=== PATIENT | female | born 1965 | race Caucasian/White ===

== ENCOUNTER → 2018-02-24 13:28 | Outpatient (CLI) | payer OTHER, MEDICAID, SELFPAY ==
--- NOTE | 2018-02-24 | DI.MRI.S_ITS ---
PROCEDURE: MR LUMBAR SPINE WO CON INDICATIONS: LUMBAR RADICULOPATHY TECHNIQUE: Noncontrast sagittal T1 spin echo and T2 fast echo, sagittal STIR, axial T1 and T2 fast spin echo through the lumbar spine. In cases with scoliosis, additional coronal T2 fast spin echo may be performed. COMPARISON: [facility], MR, L-SPINE WITHOUT CONTRAST, 05/31/2007, 17:00. [facility], MR, L-SPINE WITHOUT CONTRAST, 07/15/2009, 16:40. [facility], XA, L/S-SPINE 2-3 VIEWS PAIN DEPT, 07/24/2009, 15:34. FINDINGS: Image quality: This examination is limited by involuntary motion artifact. Alignment and Curvature: There is normal bony alignment. Bone Marrow: Marrow is of normal overall signal. No acute vertebral body compression fractures. Scattered foci are seen, which are hyperintense on T1-weighted and T2-weighted imaging, which are most consistent with benign vertebral body hemangiomas. Spinal Cord: Conus medullaris terminates at the T12-L1 level. Visualized cord demonstrates normal signal and size. Paraspinous Soft Tissues: No paravertebral masses. T12-L1: Normal appearance. L1-L2: Normal appearance. L2-L3: Normal appearance. L3-L4: No significant abnormality is seen. L4-L5: Mild loss of disc height is seen. Loss of disc signal is seen. Mild disc bulge is seen, which is eccentric to the right. Moderate facet joint hypertrophy is seen. There is mild right-sided and minimal left-sided neural foraminal narrowing seen. No significant central canal narrowing is seen. These degenerative changes are mildly progressed compared to 2008. L5-S1: Mild loss of disc height is seen. Loss of disc signal is seen. Etnh-ce-xmjauojo disc bulge is seen, which is eccentric to the right. Mild facet joint hypertrophy is seen. There is mild right-sided neural foraminal narrowing. No significant left-sided neural foraminal narrowing is seen. No central canal narrowing. Stable from the prior study. IMPRESSION: Mild lower lumbar spine degenerative changes are seen. Dictated by: Mitch Washington M.D. on 02/24/2018 at 13:15 Approved by: Mitch Washington M.D. on 02/24/2018 at 13:20
== END ==
PROVIDERS: PCP Family Medicine; Visit Provider Family Medicine
DX: M54.16 Radiculopathy, lumbar region (principal); M51.36 Other intervertebral disc degeneration, lumbar region
CPT/HCPCS: 72148

== ENCOUNTER → 2018-04-04 14:54 | Oncology outpatient (ONC) | payer OTHER, MEDICAID, SELFPAY ==
--- NOTE | 2018-04-04 15:02 | ONC.PN ---
Assessment and Plan - Time Spent with Patient IMPRESSION: 1. DVT, right external iliac vein diagnosed May 2017. 2. Bilateral pulmonary emboli, CT June 06, 2017 while on rivaroxaban. 3. Protein C and protein S deficiency. 4. Strong family history of thrombosis. 5. History of GI bleed. I reviewed the findings, questions and plan for treatment with her today. She continues on warfarin at 20 mg daily which is stable and same as previous visit. She notes recent INRs that were below 2 on a couple of occasions though most of the time she is therapeutic she believes. We reviewed her other symptoms and questions. Discussed repeat imaging however her symptoms are transient and not persistent or progressive so she will monitor and call back if this changes or go directly to the ED for further evaluation. She understands the risk of recurrent thromboembolus, particularly given her history with presentation with PE while on treatment. Continue to monitor for signs or symptoms of bleeding and call back as needed if any new concerns arise. I reviewed with her that she should have annual follow-up to review treatment plan and address any new concerns or complications from treatment. She requests six-month follow-up. PLAN: 1. Continue warfarin and follow-up with PCP or protime clinic as discussed. 2. Avoid aspirin or NSAIDs the medication. 3. Monitor for new symptoms and call back as needed 4. Return appointment here in 6 months. 5. CBC, CMP, PT/INR prior to the visit. DICTATED BY SARAY MYERS MD MEDICAL ONCOLOGY AND HEMATOLOGY PN -Subjective Interval history: HEMATOLOGY/ONCOLOGY PROGRESS NOTE DATE OF SERVICE: APRIL 04, 2018 PATIENT NAME: JOSEFINA MENSAH DATE OF : 1965 IDENTIFICATION: This is a 52-year-old woman with a history of DVT and pulmonary embolus who returns in follow-up. INTERVAL HISTORY: She returns alone in follow-up today. Last seen here in clinic by Dr. Shelley October 05, 2017. She has a history of right iliac DVT diagnosed with CT as an incidental finding at time of workup for GI bleed in May 2017. Thrombus was noted in the right internal iliac vein though subsequent lower extremity duplex x2 did not show DVT. She notes the pain was localized near the right inguinal and proximal thigh region. This occurred about 12 weeks after surgery with FLORA/BSO for cervical carcinoma. Surgery by Dr. Fagan at the [facility]. She was started on treatment with rivaroxaban and on June 06, 2018 she felt on, noting dyspnea and went to the ED at [facility] where she was diagnosed with bilateral pulmonary emboli in the lower lobes. She was taken off rivaroxaban and treated with heparin and subsequently warfarin which she continues on currently. Notes suggest she was treated with enoxaparin before transitioning to warfarin. Subsequent workup showed evidence of protein C deficiency and protein S deficiency with activity 24% and 27% respectively. Based on her history, laboratory workup and family history of fatal thromboembolus, Dr. Shelley recommended lifelong anticoagulation therapy to her. She returns in follow-up today. No new episodes of thrombo embolus. She does note occasional discomfort in the right proximal thigh similar to before but it is not progressive or constant. Also some intermittent purplish discoloration in her feet bilaterally. She notes some puffiness at times but no major swelling in either leg. She does note occasional dyspnea sometimes when she is showering and because of this leaves the door partially open which she says helps. No consistent or persistent respiratory symptoms however. No major bleeding issues. She has noted transient episode of dark residue or possible coffee-ground with bowel movement but again only 1 time and not persistent or recurrent. History of present illness Date of Service: 10/05/17 Primary Care Provider Primary Care Provider: Anupam Barcenas MD Hx of Present illness The patient is a 51 year old Female who is being seen in the clinic 10/05/17 for History of thromboses including DVT and pulmonary embolism. She is on permanent anticoagulation. From the standpoint of family history, a hypercoagulable workup was done. THis showed a low protein S and Protein C, but these values were likely influenced by warfarin. Since the last visit with Dr. Dean, the only outstanding test is to repreat the DRVVT for lupus inhibitor. HISTORY She states that in December 2016 she underwent FLORA/BSO for cervical cancer she is unaware of the stage. Her last menstrual period was November 2016. Her doctor there was Dr. Fagan. She states she was hospitalized in mid May 2017 for GI bleed at [facility] and also for pain in the right leg which she states that been present for 2 months. Another was the pain in the right leg developed approximately 3 months after her surgery. CT abdomen and pelvis with contrast, 05/31/2017, showed some thickening in the sigmoid colon, diverticulosis, and a right internal iliac vein thrombosis. Subsequent Doppler ?2 did not show thrombosis in the leg however. The patient was worked up for GI bleed with EGD and colonoscopy which showed only hemorrhoids and mild nonerosive gastritis, and was treated with anticoagulation for deep venous thrombosis.. She had been on Xarelto, according to the notes from Dr. Calvillo at [facility], from 06/03 to admission on 06/06 at 15 mg twice a day and was rehospitalized at [facility] on June 06 after being seen in the emergency room at for shortness of breath and found to have bilateral pulmonary emboli involving the lower lobe pulmonary arteries. She was treated with heparin and considered a failure on Xarelto and started on warfarin which she is taking now with some difficulty maintaining a therapeutic INR. During the second hospitalization at [facility] from June 0611/09, she was discharged on Lovenox apparent and transition to warfarin. Past Medical History The patient's past medical history is significant for: There was mention that she had Wells score of 2 with active ovarian carcinoma; patient now states that she did not have ovarian carcinoma but did cervical cancer treated for cure with FLORA/BSO in December. EGD showing two active ulcers Based on the admission H&P 06/06/2017, hypertension, depression and anxiety, allergies, chronic back pain, based on report by Socrates Bridges M.D. patient has a history of ovarian cancer and cervical cancer with the patient states she only had cervical cancer. Hyperlipidemia History of near syncope symptoms see ROS below AB 0, Nasal surgery FLORA/BSO to 2016. Past Surgical History The patient's past surgical history includes: Nasal surgery FLORA/BSO Laboratory Tests Lab Globulin 4.1 g/dL 08/17/17 1029 Total Protein 8.6 g/dL H 06/06/17 UNK Total Protein 8.7 g/dL H 08/17/17 1029 Antithrombin III Activ 85 % normal 08/17/17 1029 D-Dimer Quant (PE/DVT) 313.00 ng/mL H 08/17/17 1029 Factor V Leiden Mutat SEE NOTE 08/17/17 1029 Protein S Activity 37 % normal L 08/17/17 1029 Hct 41.7 % 08/17/17 1029 Hgb 14.3 G/DL 08/17/17 1029 Plt Count 279 X10^3/uL 08/17/17 1029 RBC 4.75 X10^6/uL 08/17/17 1029 WBC 7.9 X10^3/uL 08/17/17 1029 Miscellaneous Test See Below 08/17/17 1029 Prothrombin [id number] Mut SEE NOTE 08/17/17 1029 Assessment/Plan Assessment This is a 51-year-old woman with history of thrombosis including pulmonary embolism; although the original thrombosis could be considered related to a prior surgery 3 months earlier, she is considered high-risk for rethrombosis and is on lifelong anticoagulation. A DRVVT will be repeated to complete that workup. \He comes in the elevation in total protein a SPEP light chain assay sedimentation rate and CRP and rheumatoid factor will be drawn. Time spent with Patient A total of 30 minutes were spent on this appointment, greater than 50% of that time [id number] with the patient in counseling and coordination of care. Discussion with patient included lab results, [diagnosis], treatment options, risks and benefits. Plan for treatment continue permanent anticogulation w/u of elebvated protein, inflammatory conditions SPEP, light chain assay, sedimentation rate C-reactive protein and rheumatoid factor. Follow-up in 2 months. Copies to Anupam Barcenas MD at 0041 <Electronically signed by Epifanio Shelley MD> (PLEASE NOTE): This report may have been all or partially generated using a voice recognition software program. While every effort has been made to edit content upon its completion, product introduction manager errors may occur. Please contact the [facility] [employer] at if there are any questions, or if further clarification is necessitated. - Additional ROS Additional ROS: Review of systems General: No fever or night sweats. HEENT: No headache, vision change or epistaxis. Respiratory: Negative. Cardiac: No chest pain, PND or orthopnea. GI: As above. : No flank pain or hematuria. Musculoskeletal: As above. Neurologic: Negative. Home Medications and Allergies Home Medications Medication Instructions Recorded Confirmed Type docusate sodium [DOK] 250 mg PO BID #0 07/29/17 03/31/18 History pantoprazole 20 mg PO QDAY #0 07/29/17 03/31/18 History sertraline 50 mg PO QDAY #0 07/29/17 03/31/18 History tramadol 50 mg PO Q6H #0 07/29/17 03/31/18 History warfarin [Coumadin] 20 mg PO QDAY #0 07/29/17 03/31/18 History oxycodone-acetaminophen [Percocet] 1 tab PO PRN #0 12/05/17 03/31/18 History pqipuohtfw-kughavkbmdsix-vdtyptas 1 cap PO Q4H PRN 03/31/18 03/31/18 History 50 mg-300 mg-40 mg capsule Allergies Allergy/AdvReac Type Severity Reaction Status Date / Time azithromycin [AZITHROMYCIN] Allergy Unknown Verified 03/31/18 11:44 Sulfa (Sulfonamide Allergy Unknown RESPIRATORY Verified 03/31/18 11:44 Antibiotics) DISTRESS [SULFA (SULFONAMIDE ANTIBIOTICS)] sumatriptan [From IMITREX] Allergy Unknown RESP Verified 03/31/18 11:44 DISTRESS Exam - Constitutional positive no acute distress, positive average body habitus, positive cooperative - Routine HEENT Exam Head: Present: normocephalic, atraumatic. Absent: cushingoid faces, hematoma, facial swelling Eye: Present: EOMI, PERRL, conjunctivae pink. Absent: conjunctival icterus, scleral injection ENT: Present: mucous membranes moist, oropharynx clear - Routine Neck Exam Present: supple. Absent: lymphadenopathy - Routine Respiratory Exam Present: Clear to auscultation bilaterally. Absent: accessory muscle use, rales, respiratory distress, wheezes - Routine Cardiovascular Exam Present: RRR, S1, S2. Absent: murmur, rubs, S3 - Routine Abdominal Exam Present: soft, normoactive bowel sounds. Absent: tenderness, distended, organomegaly Palpation/Percussion: Absent: hepatomegaly - Routine Extremities Exam Present: full ROM. Absent: cyanosis, clubbing, edema - Routine Skin Exam Present: intact. Absent: cyanosis, erythema, petechiae, jaundice, rash, ecchymosis - Routine Neurological Exam Present: alert, moving all extremities, normal speech. Absent: altered mental status - Routine Psychiatric Exam Present: normal affect, normal thought process, cooperative, good judgment
--- NOTE | 2018-04-04 15:30 | P.PNONC_ITS ---
Assessment and Plan - Time Spent with Patient IMPRESSION: 1. DVT, right external iliac vein diagnosed May 2017. 2. Bilateral pulmonary emboli, CT June 06, 2017 while on rivaroxaban. 3. Protein C and protein S deficiency. 4. Strong family history of thrombosis. 5. History of GI bleed. I reviewed the findings, questions and plan for treatment with her today. She continues on warfarin at 20 mg daily which is stable and same as previous visit. She notes recent INRs that were below 2 on a couple of occasions though most of the time she is therapeutic she believes. We reviewed her other symptoms and questions. Discussed repeat imaging however her symptoms are transient and not persistent or progressive so she will monitor and call back if this changes or go directly to the ED for further evaluation. She understands the risk of recurrent thromboembolus, particularly given her history with presentation with PE while on treatment. Continue to monitor for signs or symptoms of bleeding and call back as needed if any new concerns arise. I reviewed with her that she should have annual follow-up to review treatment plan and address any new concerns or complications from treatment. She requests six-month follow-up. PLAN: 1. Continue warfarin and follow-up with PCP or protime clinic as discussed. 2. Avoid aspirin or NSAIDs the medication. 3. Monitor for new symptoms and call back as needed 4. Return appointment here in 6 months. 5. CBC, CMP, PT/INR prior to the visit. DICTATED BY SARAY MYERS MD MEDICAL ONCOLOGY AND HEMATOLOGY PN -Subjective Interval history: HEMATOLOGY/ONCOLOGY PROGRESS NOTE DATE OF SERVICE: APRIL 04, 2018 PATIENT NAME: JOSEFINA MENSAH DATE OF : 1965 IDENTIFICATION: This is a 52-year-old woman with a history of DVT and pulmonary embolus who returns in follow-up. INTERVAL HISTORY: She returns alone in follow-up today. Last seen here in clinic by Dr. Shelley October 05, 2017. She has a history of right iliac DVT diagnosed with CT as an incidental finding at time of workup for GI bleed in May 2017. Thrombus was noted in the right internal iliac vein though subsequent lower extremity duplex x2 did not show DVT. She notes the pain was localized near the right inguinal and proximal thigh region. This occurred about 12 weeks after surgery with FLORA/BSO for cervical carcinoma. Surgery by Dr. Fagan at the [facility]. She was started on treatment with rivaroxaban and on June 06, 2018 she felt on, noting dyspnea and went to the ED at [facility] where she was diagnosed with bilateral pulmonary emboli in the lower lobes. She was taken off rivaroxaban and treated with heparin and subsequently warfarin which she continues on currently. Notes suggest she was treated with enoxaparin before transitioning to warfarin. Subsequent workup showed evidence of protein C deficiency and protein S deficiency with activity 24% and 27% respectively. Based on her history, laboratory workup and family history of fatal thromboembolus, Dr. Shelley recommended lifelong anticoagulation therapy to her. She returns in follow-up today. No new episodes of thrombo embolus. She does note occasional discomfort in the right proximal thigh similar to before but it is not progressive or constant. Also some intermittent purplish discoloration in her feet bilaterally. She notes some puffiness at times but no major swelling in either leg. She does note occasional dyspnea sometimes when she is showering and because of this leaves the door partially open which she says helps. No consistent or persistent respiratory symptoms however. No major bleeding issues. She has noted transient episode of dark residue or possible coffee-ground with bowel movement but again only 1 time and not persistent or recurrent. History of present illness Date of Service: 10/05/17 Primary Care Provider Primary Care Provider: Anupam Barcenas MD Hx of Present illness The patient is a 51 year old Female who is being seen in the clinic 10/05/17 for History of thromboses including DVT and pulmonary embolism. She is on permanent anticoagulation. From the standpoint of family history, a hypercoagulable workup was done. THis showed a low protein S and Protein C, but these values were likely influenced by warfarin. Since the last visit with Dr. Dean, the only outstanding test is to repreat the DRVVT for lupus inhibitor. HISTORY She states that in December 2016 she underwent FLORA/BSO for cervical cancer she is unaware of the stage. Her last menstrual period was November 2016. Her doctor there was Dr. Fagan. She states she was hospitalized in mid May 2017 for GI bleed at [facility] and also for pain in the right leg which she states that been present for 2 months. Another was the pain in the right leg developed approximately 3 months after her surgery. CT abdomen and pelvis with contrast, 05/31/2017, showed some thickening in the sigmoid colon, diverticulosis, and a right internal iliac vein thrombosis. Subsequent Doppler ?2 did not show thrombosis in the leg however. The patient was worked up for GI bleed with EGD and colonoscopy which showed only hemorrhoids and mild nonerosive gastritis, and was treated with anticoagulation for deep venous thrombosis.. She had been on Xarelto, according to the notes from Dr. Calvillo at [facility], from 06/03 to admission on 06/06 at 15 mg twice a day and was rehospitalized at [facility] on June 06 after being seen in the emergency room at for shortness of breath and found to have bilateral pulmonary emboli involving the lower lobe pulmonary arteries. She was treated with heparin and considered a failure on Xarelto and started on warfarin which she is taking now with some difficulty maintaining a therapeutic INR. During the second hospitalization at [facility] from June 0611/09, she was discharged on Lovenox apparent and transition to warfarin. Past Medical History The patient's past medical history is significant for: There was mention that she had Wells score of 2 with active ovarian carcinoma; patient now states that she did not have ovarian carcinoma but did cervical cancer treated for cure with FLORA/BSO in December. EGD showing two active ulcers Based on the admission H&P 06/06/2017, hypertension, depression and anxiety, allergies, chronic back pain, based on report by Socrates Bridges M.D. patient has a history of ovarian cancer and cervical cancer with the patient states she only had cervical cancer. Hyperlipidemia History of near syncope symptoms see ROS below AB 0, Nasal surgery FLORA/BSO to 2016. Past Surgical History The patient's past surgical history includes: Nasal surgery FLORA/BSO Laboratory Tests Lab Globulin 4.1 g/dL 08/17/17 1029 Total Protein 8.6 g/dL H 06/06/17 UNK Total Protein 8.7 g/dL H 08/17/17 1029 Antithrombin III Activ 85 % normal 08/17/17 1029 D-Dimer Quant (PE/DVT) 313.00 ng/mL H 08/17/17 1029 Factor V Leiden Mutat SEE NOTE 08/17/17 1029 Protein S Activity 37 % normal L 08/17/17 1029 Hct 41.7 % 08/17/17 1029 Hgb 14.3 G/DL 08/17/17 1029 Plt Count 279 X10^3/uL 08/17/17 1029 RBC 4.75 X10^6/uL 08/17/17 1029 WBC 7.9 X10^3/uL 08/17/17 1029 Miscellaneous Test See Below 08/17/17 1029 Prothrombin [id number] Mut SEE NOTE 08/17/17 1029 Assessment/Plan Assessment This is a 51-year-old woman with history of thrombosis including pulmonary embolism; although the original thrombosis could be considered related to a prior surgery 3 months earlier, she is considered high-risk for rethrombosis and is on lifelong anticoagulation. A DRVVT will be repeated to complete that workup. \He comes in the elevation in total protein a SPEP light chain assay sedimentation rate and CRP and rheumatoid factor will be drawn. Time spent with Patient A total of 30 minutes were spent on this appointment, greater than 50% of that time [id number] with the patient in counseling and coordination of care. Discussion with patient included lab results, [diagnosis], treatment options, risks and benefits. Plan for treatment continue permanent anticogulation w/u of elebvated protein, inflammatory conditions SPEP, light chain assay, sedimentation rate C-reactive protein and rheumatoid factor. Follow-up in 2 months. Copies to Anupam Barcenas MD at 0041 <Electronically signed by Epifanio Shelley MD> (PLEASE NOTE): This report may have been all or partially generated using a voice recognition software program. While every effort has been made to edit content upon its completion, special education professor errors may occur. Please contact the [facility] [employer] [facility] at if there are any questions, or if further clarification is necessitated. - Additional ROS Additional ROS: Review of systems General: No fever or night sweats. HEENT: No headache, vision change or epistaxis. Respiratory: Negative. Cardiac: No chest pain, PND or orthopnea. GI: As above. : No flank pain or hematuria. Musculoskeletal: As above. Neurologic: Negative. Home Medications and Allergies Home Medications Medication Instructions Recorded Confirmed Type docusate sodium [DOK] 250 mg PO BID #0 07/29/17 03/31/18 History pantoprazole 20 mg PO QDAY #0 07/29/17 03/31/18 History sertraline 50 mg PO QDAY #0 07/29/17 03/31/18 History tramadol 50 mg PO Q6H #0 07/29/17 03/31/18 History warfarin [Coumadin] 20 mg PO QDAY #0 07/29/17 03/31/18 History oxycodone-acetaminophen [Percocet] 1 tab PO PRN #0 12/05/17 03/31/18 History auaykmcwdh-vctaudfauagaf-smyqgmqx 1 cap PO Q4H PRN 03/31/18 03/31/18 History 50 mg-300 mg-40 mg capsule Allergies Allergy/AdvReac Type Severity Reaction Status Date / Time azithromycin [AZITHROMYCIN] Allergy Unknown Verified 03/31/18 11:44 Sulfa (Sulfonamide Allergy Unknown RESPIRATORY Verified 03/31/18 11:44 Antibiotics) DISTRESS [SULFA (SULFONAMIDE ANTIBIOTICS)] sumatriptan [From IMITREX] Allergy Unknown RESP Verified 03/31/18 11:44 DISTRESS Exam - Constitutional positive no acute distress, positive average body habitus, positive cooperative - Routine HEENT Exam Head: Present: normocephalic, atraumatic. Absent: cushingoid faces, hematoma, facial swelling Eye: Present: EOMI, PERRL, conjunctivae pink. Absent: conjunctival icterus, scleral injection ENT: Present: mucous membranes moist, oropharynx clear - Routine Neck Exam Present: supple. Absent: lymphadenopathy - Routine Respiratory Exam Present: Clear to auscultation bilaterally. Absent: accessory muscle use, rales , respiratory distress, wheezes - Routine Cardiovascular Exam Present: RRR, S1, S2. Absent: murmur, rubs, S3 - Routine Abdominal Exam Present: soft, normoactive bowel sounds. Absent: tenderness, distended, organomegaly Palpation/Percussion: Absent: hepatomegaly - Routine Extremities Exam Present: full ROM. Absent: cyanosis, clubbing, edema - Routine Skin Exam Present: intact. Absent: cyanosis, erythema, petechiae, jaundice, rash, ecchymosis - Routine Neurological Exam Present: alert, moving all extremities, normal speech. Absent: altered mental status - Routine Psychiatric Exam Present: normal affect, normal thought process, cooperative, good judgment
[2018-04-05 09:28] VITALS: BP 139/76; PULSE 82; RESP 16; TEMP 37; O2SAT 98
--- NOTE | 2018-09-27 15:30 | ONC.SCHED ---
called patient today to schedule 6 month fup/she stated she is being seen at [facility]. She will call if she desires to re-establish care here.
== END ==
PROVIDERS: PCP Family Medicine; Visit Provider Internal Medicine Hematology & Oncology
DX: D68.59 Other primary thrombophilia (principal); Z79.01 Long term (current) use of anticoagulants; Z86.718 Personal history of other venous thrombosis and embolism; Z86.711 Personal history of pulmonary embolism; Z85.41 Personal history of malignant neoplasm of cervix uteri
CPT/HCPCS: 99214

== ENCOUNTER → 2018-04-13 12:49 | Outpatient (CLI) | payer OTHER, MEDICAID, SELFPAY | PROVIDERS: PCP Family Medicine; Visit Provider Family Medicine | DX: R20.0 Anesthesia of skin (principal) | CPT/HCPCS: 95886; 95911 ==

== ENCOUNTER 2018-05-10 08:32 | Outpatient (CLI) | payer OTHER, MEDICAID, SELFPAY ==
[2018-05-10] VITALS (9 sets, daily range): BP systolic 108–137; BP diastolic 65–80; PULSE 59–80; RESP 16–18; TEMP 36.1; O2SAT 96–100
--- NOTE | 2018-05-10 08:34 | DI.RAD.S_ITS ---
PROCEDURE: PAIN L/S TRANSFORAMINAL INJECT INDICATIONS: L5-S1 HNP with right lower extremity symptoms FINDINGS: Fluoroscopic spot filming was performed to verify placement of spinal needles at the right L5-S1 level(s), as labeled on the films. Appropriate location(s) of the needle tip(s) was confirmed by injection of iodinated contrast. IMPRESSION: Successful right L5-S1 transforaminal needle tip localization for epidural steroid injection. Dictated by: Krari Rose M.D. on 05/12/2018 at 12:19 Approved by: Karri Rose M.D. on 05/12/2018 at 12:20
[2018-05-10] MEDS: MIDAZOLAM 5 MG/5 ML VIAL IV (10:37)
[2018-05-10] MEDS: IOPAMIDOL 15 ML VIAL 3 ML INJ (10:43)
[2018-05-10] MEDS: BUPIVACAINE 0.25% (PF) VIAL 2 ML INJ (10:43)
[2018-05-10] MEDS: methylPREDNISolone acetate 80 MG/ML VIAL INJ (10:43)
[2018-05-10] MEDS: DEXAMETHASONE 10 MG/ML VIAL 20 MG INJ (10:44)
--- NOTE | 2018-05-10 10:56 | P.PCN_ITS ---
Procedures Date/Time Date of procedure: 05/10/18 Time of procedure: 10:54 General Procedure description: PREOP DIAGNOSIS 1. FORMAINAL STENOSIS WITH LE SYMPTOMS, POST OP DIAGNOSIS 1. FORMAINAL STENOSIS WITH LE SYMPTOMS, PROCEDURES 1.FLUOROSCOPICALLY GUIDED CONTRAST CONTROLLED TRANSFORAMINAL EPIDURAL STEROID INJECTION - RIGHT L5/S1 TFESI PHYSICIAN: Cyrus Villareal DO INDICATIONS: Tiffanie is referred by for treatment of Foraminal Stenosis with right LE Symptoms FINDINGS Foraminal Nerve Root Compression secondary to disc disease and facet hypertrophy DESCRIPTION OF PROCEDURE Following denial of allergy and review of potential side effects and complications, including, but not necessarily limited to, infection, allergic reaction, local tissue breakdown, stroke, temporary or permanent nerve injury, paralysis, and possible , the patient indicated that the patient understood and agreed to proceed. An informed consent document was signed by the patient, witnessed by a nurse, and placed in the patient's chart. Additionally, other treatment options including medications, modalities, and physical therapy were reviewed with the patient. After review of previous anaesthesic history and IV conscious sedation the patient was deemed safe to proceed with todays procedure with IV conscious sedation as ASA class II designation. Safety time-out was performed to confirm patient ID, procedure to be performed and site of procedure. IV sedation was accomplished with a combination of 4mg was administered by the RN after DO order , titrated to patient comfort during the course of the procedure while the patient remained responsive to all verbal commands In the prone position following sterile prep and drape of the lumbar region, the right L5/S1 posterior neuroforamen was identified fluoroscopically. The skin was anesthetized via a 25-gauge 1.5-inch needle with 1% lidocaine solution. At this point, a 25-gauge 3.5-inch spinal needle was atraumatically introduced and advanced under fluoroscopic guidance through the posterior right L5/S1 neuroforamen to approximately the anterior aspect of the canal. Depth was confirmed on lateral view. Following negative aspiration, injection of approximately 1.5 cc of Isovue 200 under live fluoroscopy in the AP view confirmed excellent flow along the nerve root, into the epidural space without vascular or intrathecal uptake observed Radiological data, including multiple fluoroscopic views of the lumbosacral spine, reveal a spinal needle at the right L5/S1 posterior neuroforamen. Subsequent views show flow of contrast material flowing superiorly and inferiorly along the nerve root confirming epidural flow. Subsequently, a test dose of 1.5 cc of 1% lidocaine solution was administered and patient was observed for two minutes for signs or symptoms of complications , including abdominal pain, shortness of breath, bilateral upper or lower extremity weakness, nausea and vomiting, prior to steroid injection. At this point, a total of 3 cc or 20 mg of dexamethasone and 80mg Depo Medrol was injected without incident. The procedure tolerated the procedure well without signs or symptoms of complications prior to transfer to the recovery area continued monitoring without incident. The patient was then transferred to the recovery area where they were observed for an appropriate time after the injection. The patient reported a VAS score of 7 prior to the procedure and a post-procedure VAS of 0. Total Fluoroscopy Time: 20.9 seconds Total Conscious Sedation Time: 24min POST OP INSTRUCTIONS The patient was provided a Pain Log to continue to record their response to the target-specific procedure prior to follow-up visit with their referring physician. Additionally, specific post-injection care instructions and a contact number to our office were provided if concerns arise regarding possible complications associated with the procedure are suspected. Cyrus Villareal DO Complications: none
== END 2018-05-10 11:30 ==
LOC: RAD 08:33
PROVIDERS: PCP Family Medicine; Visit Provider Physical Medicine & Rehabilitation
DX: M51.27 Other intervertebral disc displacement, lumbosacral region (principal); M54.17 Radiculopathy, lumbosacral region
CPT/HCPCS: 64483; 99152; J1040; J1100; J2250

== ENCOUNTER → 2019-01-15 14:46 | Outpatient (CLI) | payer OTHER, MEDICAID, SELFPAY ==
--- NOTE | 2019-01-15 | DI.MG.S_ITS ---
BILATERAL DIGITAL SCREENING MAMMOGRAM 3D/2D WITH CAD: 01/15/2019 CLINICAL: Routine screening. Family history of breast cancer. Comparison is made to exams dated: 12/20/2016 mammogram, 12/03/2016 mammogram, and 04/02/2009 mammogram - [facility]. There are scattered fibroglandular elements in both breasts. Current study was also evaluated with a Computer Aided Detection (CAD) system. No significant masses, calcifications, or other findings are seen in either breast. There has been no significant interval change. IMPRESSION: NEGATIVE There is no mammographic evidence of malignancy. A 1 year screening mammogram is recommended. This exam was interpreted at Station ID: [id number]. NOTE: For mammograms, a report in lay terms will be sent to the patient. Approximately 15% of breast malignancies will not be visualized mammographically. In the management of a palpable breast mass, a negative mammogram must not discourage biopsy of a clinically suspicious lesion. Electronically Signed By: Erik little/estrella:01/15/2019 16:48:08 letter sent: Normal Exam ACR BI-RADS Category 1: Negative [id number]
== END ==
PROVIDERS: PCP Family Medicine; Visit Provider Family Medicine
DX: Z12.31 Encounter for screening mammogram for malignant neoplasm of breast (principal); Z80.3 Family history of malignant neoplasm of breast
CPT/HCPCS: 77063; 77067

== ENCOUNTER → 2021-01-07 11:17 | Outpatient (CLI) | payer OTHER, MEDICAID, SELFPAY ==
--- NOTE | 2021-01-07 | DI.MG.S_ITS ---
BILATERAL DIGITAL SCREENING MAMMOGRAM 3D/2D WITH CAD: 01/07/2021 CLINICAL: Routine screening. Family history of breast cancer. Comparison is made to exams dated: 01/15/2019 mammogram, 12/03/2016 mammogram, and 09/03/2008 mammogram - [facility]. There are scattered fibroglandular elements in both breasts. Current study was also evaluated with a Computer Aided Detection (CAD) system. No significant masses, calcifications, or other findings are seen in either breast. There has been no significant interval change. IMPRESSION: NEGATIVE There is no mammographic evidence of malignancy. A 1 year screening mammogram is recommended. This exam was interpreted at Station ID: [id number]. NOTE: For mammograms, a report in lay terms will be sent to the patient. Approximately 15% of breast malignancies will not be visualized mammographically. In the management of a palpable breast mass, a negative mammogram must not discourage biopsy of a clinically suspicious lesion. Electronically Signed By: Erik little/estrella:01/07/2021 16:47:44 letter sent: Normal Exam ACR BI-RADS Category 1: Negative [id number]
== END ==
PROVIDERS: PCP Student in an Organized Health Care Education/Training Program; Referring Provider Student in an Organized Health Care Education/Training Program; Visit Provider Student in an Organized Health Care Education/Training Program
DX: Z12.31 Encounter for screening mammogram for malignant neoplasm of breast (principal)
CPT/HCPCS: 77063; 77067

== ENCOUNTER → 2022-03-10 10:32 | Outpatient (CLI) | payer OTHER, MEDICAID, SELFPAY ==
--- NOTE | 2022-03-10 | DI.MG.S_ITS ---
BILATERAL DIGITAL SCREENING MAMMOGRAM 3D/2D WITH CAD: 03/10/2022 CLINICAL: Routine screening. Family history of breast cancer. Comparison is made to exams dated: 01/07/2021 mammogram, 01/15/2019 mammogram, and 12/03/2016 mammogram - [facility]. There are scattered fibroglandular elements in both breasts. Current study was also evaluated with a Computer Aided Detection (CAD) system. No significant masses, calcifications, or other findings are seen in either breast. There has been no significant interval change. IMPRESSION: NEGATIVE There is no mammographic evidence of malignancy. A 1 year screening mammogram is recommended. Based on the Tyrer Cuzick model (a risk assessment model) the patient's lifetime risk is 5.7% and her 10 year risk is 1.7%. According to the ACR, ACS, and NCCN guidelines, an annual breast MRI exam along with mammogram is recommended if the patient's lifetime risk is 20% or greater. This exam was interpreted at Station ID: [id number]. NOTE: For mammograms, a report in lay terms will be sent to the patient. Approximately 15% of breast malignancies will not be visualized mammographically. In the management of a palpable breast mass, a negative mammogram must not discourage biopsy of a clinically suspicious lesion. Electronically Signed By: Brenden richter/estrella:03/10/2022 11:02:10 letter sent: Normal Exam ACR BI-RADS Category 1: Negative [id number]
== END ==
PROVIDERS: PCP Internal Medicine; Referring Provider Internal Medicine; Visit Provider Internal Medicine
DX: Z12.31 Encounter for screening mammogram for malignant neoplasm of breast (principal); Z80.3 Family history of malignant neoplasm of breast
CPT/HCPCS: 77063; 77067

== ENCOUNTER 2023-04-30 20:06 | Observation (INO) | payer OTHER, MEDICAID, SELFPAY ==
[2023-04-30] VITALS (10 sets, daily range): BP systolic 126–147; BP diastolic 60–73; PULSE 56–64; RESP 14–23; TEMP 36.6; O2SAT 95–100; BMI 25.5
--- NOTE | 2023-04-30 20:15 | DI.RAD.S_ITS ---
PROCEDURE: XR CHEST 1V INDICATIONS: Possible stroke TECHNIQUE: One view of the chest was acquired. COMPARISON: [facility], , CHEST 1 VIEW, 06/06/2017, 14:02. FINDINGS: Surgical changes and devices: None. Lungs and pleura: Lungs are clear. No pleural effusions or pneumothorax. Mediastinum: Mediastinal contours appear normal. Heart size is normal. Bones and chest wall: No suspicious bony lesions. Overlying soft tissues appear unremarkable. IMPRESSION: Normal for age, source of current stroke symptoms is not seen. Dictated by: Karri Rose M.D. on 04/30/2023 at 21:30 Approved by: Karri Rose M.D. on 04/30/2023 at 21:31
--- NOTE | 2023-04-30 20:15 | DI.CT.S_ITS ---
PROCEDURE: CT STROKE INDICATIONS: Positive BE-FAST, possible stroke symptoms TECHNIQUE: Noncontrast 4.5 mm thick angled axial sections acquired from the foramen magnum to the vertex, with coronal reformats. For radiation dose reduction, the following was used: automated exposure control, adjustment of mA and/or kV according to patient size. COMPARISON: None. FINDINGS: Image quality and note: Excellent. The electrical engineering technologist note states specifically that this study is not a stroke protocol tPA candidate examination but rather a head CT without contrast. CSF spaces: Basal cisterns are patent. No extra-axial fluid collections. Ventricles are normal in size and shape. Brain: No midline shift. No intracranial masses or hemorrhage. Felipe-white matter interface is normal. Skull and face: Calvarium and visualized facial bones are intact, without suspicious lesions. Sinuses: Visualized sinuses and mastoids are clear. IMPRESSION: No acute disease found, normal for age. Dictated by: Karri Rose M.D. on 04/30/2023 at 21:35 Approved by: Karri Rose M.D. on 04/30/2023 at 21:36
--- NOTE | 2023-04-30 20:15 | PC.NURSE ---
PT reports headache yesterday and woke up with delayed speech/word finding trouble/slur at times. Takes eliquis BID for PE and DVT. Left sided weakness in arm/leg. Also reports sensation feels different/less on left side.
--- NOTE | 2023-04-30 20:20 | ED.NEUROSD ---
HPI - Neuro Symptoms/Deficit General Chief Complaint: Neuro Symptoms/Deficit Stated Complaint: R/O stroke Time Seen by Provider: 04/30/23 20:19 Source: patient Mode of arrival: Ambulatory History of Present Illness HPI Narrative: 57-year-old female former smoker with history pulmonary emboli and anticoagulated on eliquis presents for evaluation of stroke-like symptoms. She reports that she started having a bit of a headache yesterday and when she awoke this morning at about 6:00 a.m. in the morning she noticed that she had trouble walking and talking. She does have a history of headaches and had a headache a few days ago but that is resolved and her neurologic symptoms persist. She is not dizzy or lightheaded. She states that she has no vision change. She complains that she knows what she wants to say but it does come out right. She admits to some tingling in her left arm as well as measurable weakness in her left arm and leg. She is not activated as a code stroke and the time of onset as well as her use of anticoagulants On Anticoagulants: Yes (eliquis) Related Data Home Medications Medication Instructions Recorded Confirmed pantoprazole 40 mg tablet,delayed 20 mg PO BID ##0 07/29/17 05/01/23 release ovmfmealcz-zayipyrteyapw-evblyavj 1 cap PO Q4H PRN Pain (Scale Score 03/31/18 05/01/23 50 mg-300 mg-40 mg capsule 4-6) (Fioricet) Allergies Allergy/AdvReac Type Severity Reaction Status Date / Time azithromycin [AZITHROMYCIN] Allergy Unknown Verified 05/26/18 10:12 Sulfa (Sulfonamide Allergy Unknown RESPIRATORY Verified 05/26/18 10:12 Antibiotics) DISTRESS [SULFA (SULFONAMIDE ANTIBIOTICS)] sumatriptan [From IMITREX] Allergy Unknown RESP Verified 05/26/18 10:12 DISTRESS Review of Systems Review of Systems Narrative: GENERAL: Denies chills, fatigue, malaise, fever, sweats. HEENT: Denies sinus pain, ear pain, sore throat, difficulty swallowing, dizziness. RESPIRATORY: Denies dyspnea, cough, wheezing, hemoptysis, sputum. CARDIOVASCULAR: Denies chest pain, palpitations, orthopnea, edema, GASTROINTESTINAL: Denies nausea, vomiting, abdominal pain, diarrhea, constipation, melena. : Denies dysuria, frequency, incontinence, hematuria, urinary retention. MUSCULOSKELETAL: denies weakness, joint pain, or bony pain SKIN: Denies rash, skin lesions, or other NEUROLOGIC: See HPI PSYCHIATRIC: No concerning psychosocial issues. 12 point review of systems is negative except for those stated above Hematologic/Lymphatic On Anticoagulants: Yes (eliquis) Patient History Social History household members: family Smoking Status: Former smoker alcohol intake: never Smoking Status: Former smoker Substance Use Type: does not use Exam Narrative Exam Narrative: GENERAL: [57] year old patient appears stated age. Well-developed patient, in mild distress. HEAD: Atraumatic. Normocephalic. EYES: Pupils equal round and reactive. Extraocular motions intact. No scleral icterus. No injection or drainage. ENT: Nose without bleeding, purulent drainage. Throat without erythema, tonsillar hypertrophy or exudate. Airway patent. NECK: Trachea midline. Non tender CARDIOVASCULAR: Regular rate and rhythm without murmurs, gallops, or rubs. RESPIRATORY: Clear to auscultation. Breath sounds equal bilaterally. No wheezes, rales, or rhonchi. GASTROINTESTINAL: Abdomen soft, non-tender, nondistended. EXTREMITIES: No edema or joint tenderness. BACK: Nontender without deformity or crepitance. No flank tenderness. NEURO: AOx3. SKIN: No rash or erythema of visible areas Initial Vital Signs Initial Vital Signs: Vital Signs Temperature 97.8 F 04/30/23 20:09 Pulse Rate 58 L 04/30/23 20:09 Respiratory Rate 14 04/30/23 20:09 Blood Pressure 147/73 H 04/30/23 20:09 Pulse Oximetry 100 04/30/23 20:09 Oxygen Delivery Method Room Air 04/30/23 20:09 Scores NIH Stroke Scale Level of Conciousness: Alert, keenly responsive Ask month/age: Answers both questions correctly. Open/close eyes, close hand: Performs both tasks correctly Best gaze horizontal: Normal Visual steele: No visual loss Facial palsy: Normal symetrical movement Left arm drift: Drifts down, not to bed Right arm drift: No drift for full 10 sec Left leg drift: Drifts down, not to bed Right leg drift: No drift for full 5 sec Limb ataxia: Absent Sensory on face/arms/legs: Mild to moderate sensory loss, can tell touch Best language: Mild to moderate, slurs some words Dysarthria: Normal Extinction or inattention: No abnormality Total NIH Stroke scale score: 4 Course Orders Ordered: ED Orders 04/30/23 21:47 CT angio head and neck Stat 04/30/23 22:10 Urine Drug Screen, Rapid Stat Urine Microscopic Stat 05/01/23 MR head/brain wo con Routine Lipid Panel Routine 05/01/23 00:54 Education, smoking cessation ONGOING 05/01/23 00:57 Consult to Occupational Therapy Evaluate & Treat Consult to Physical Therapy Evaluate & Treat 05/01/23 02:01 Consult to Speech Therapy Evaluate & Treat Acetaminophen (Acetaminophen 325 Mg Tablet) 650 mg PO Q6H PRN PRN Reason: Fever/Mild Pain (1-3) Last Admin: 05/01/23 02:54 Dose: 650 mg Documented By: Fenofibrate (Fenofibrate, Micronized 67 Mg Capsule) 134 mg PO DAILY@0800 [facility] Fish Oil (Fish Oil 1,000 Mg Capsule) 2,000 mg PO BID [facility] Lisinopril (Lisinopril 10 Mg Tablet) 10 mg PO DAILY [facility] Metoclopramide HCl (Metoclopramide 10 Mg/2 Ml Inj) 5 mg IV Q6HR PRN PRN Reason: Nausea And Vomiting Metoprolol Tartrate (Metoprolol Ir 25 Mg Tablet) 25 mg PO BID [facility] Naloxone HCl (Naloxone 0.4 Mg/Ml Vial) 0.2 mg IV Q2MIN PRN PRN Reason: Opiate Reversal Nitroglycerin (Nitroglycerin 0.4 Mg Sl Tab) 0.4 mg SL [id number] PRN PRN Reason: Chest Pain Ondansetron HCl (Ondansetron 4 Mg/2 Ml Inj) 4 mg IV NOW PRN PRN Reason: Nausea And Vomiting Last Admin: 05/01/23 00:01 Dose: 4 mg Documented By: SB Discontinued Medications Aspirin (Aspirin 81 Mg Chew Tab) 81 mg PO DAILY [facility] Ondansetron HCl (Ondansetron 4 Mg Odt) 4 mg SL NOW PRN PRN Reason: Nausea And Vomiting Vital Signs Vital signs: Vital Signs - 8 hr 04/30/23 22:13 04/30/23 22:13 04/30/23 22:30 Pulse Rate 62 Respiratory Rate 18 Blood Pressure 135/63 135/63 Pulse Oximetry 99 Oxygen Delivery Method 04/30/23 22:30 04/30/23 23:00 04/30/23 23:00 Pulse Rate 56 L 64 Respiratory Rate 19 20 Blood Pressure 126/60 Pulse Oximetry 97 95 Oxygen Delivery Method 04/30/23 23:30 04/30/23 23:30 05/01/23 00:00 Pulse Rate 58 L 63 Respiratory Rate 18 16 Blood Pressure 126/60 Pulse Oximetry 98 99 Oxygen Delivery Method 05/01/23 00:01 05/01/23 00:01 05/01/23 00:30 Pulse Rate 57 L Respiratory Rate 15 Blood Pressure 122/56 L 101/49 L Pulse Oximetry 98 Oxygen Delivery Method Room Air 05/01/23 00:30 05/01/23 00:36 05/01/23 00:36 Pulse Rate 54 L 58 L Respiratory Rate 15 20 Blood Pressure 127/60 Pulse Oximetry 96 97 Oxygen Delivery Method Room Air Room Air 05/01/23 01:00 05/01/23 01:00 05/01/23 01:30 Pulse Rate 60 Respiratory Rate 18 Blood Pressure 118/59 L 117/55 L Pulse Oximetry 98 Oxygen Delivery Method 05/01/23 01:30 Pulse Rate 53 L Respiratory Rate 15 Blood Pressure Pulse Oximetry 96 Oxygen Delivery Method MDM - Neuro Symptoms/Deficit Lab Data 04/30/23 20:30 04/30/23 20:30 Labs: Lab Results 04/30/23 04/30/23 04/30/23 Range/Units 20:30 20:30 20:30 WBC 10.3 (4.5-11.0) X10^3/uL RBC 4.68 (4.0-5.2) X10^6/uL Hgb 14.1 (12.0-16.0) g/dL Hct 41.4 (36-46) % MCV 88.4 (80-100) fL MCH 30.2 (26-34) PG MCHC 34.2 (30-36) % RDW 13.3 (11.6-14.8) % Plt Count 273 (150-400) X10^3/uL Neut % (Auto) 52.6 (50-75) % Lymph % (Auto) 40.2 H (25-40) % [place] % (Auto) 5.8 (3-14) % Eos % (Auto) 0.7 L (2-4) % Baso % (Auto) 0.7 (0-2) % Neut # (Auto) 5400 (7123-4260) /uL Lymph # (Auto) 4200 (3765-5570) /uL [place] # (Auto) 600 (0-900) /uL Eos # (Auto) 100 (0-450) /uL Baso # (Auto) 100 (0-100) /uL PT 12.8 H (10.1-12.7) SECONDS INR 1.1 (0.9-1.3) APTT 31 (26-36) SECONDS Sodium 140 (137-145) mmol/L Potassium 3.8 (3.4-5.1) mmol/L Chloride 106 (98-107) mmol/L Carbon Dioxide 23 (22-32) mmol/L BUN 14 (7-17) mg/dL Creatinine 0.64 (0.52-1.04) mg/dL Estimated GFR > 60 (>60) mL/min BUN/Creatinine Ratio 21.9 (6-22) Glucose 98 (70-100) mg/dL Calcium 9.1 (8.4-10.2) mg/dL Magnesium 1.8 (1.6-2.3) mg/dL Total Bilirubin 0.3 (0.2-1.3) mg/dL AST 33 (14-36) IU/L ALT 23 (<35) IU/L Alkaline Phosphatase 51 (38-126) U/L Total Creatine Kinase 57 (30-135) U/L Troponin I < 0.012 (0.01-0.034) ng/mL Total Protein 7.2 (6.3-8.2) g/dL Albumin 4.2 (3.5-5.0) g/dL Globulin 3.0 (1.7-4.1) g/dL Albumin/Globulin Ratio 1.4 (1.0-2.8) Urine RBC (0-5/HPF) Urine WBC (0-5/HPF) Ur Squamous Epith Cells (0-5/HPF) Urine Bacteria (None) Ur Culture Indicated? U Opiates 300ng/mL cut (Negative) Ur Oxycodone Screen (Negative) Urine Methadone Screen (Negative) Ur Barbiturates Screen (Negative) U Tricyclic Antidepress (Negative) Ur Phencyclidine Scrn (Negative) Ur Amphetamines Screen (Negative) U Methamphetamines Scrn (Negative) Ur MDMA Scrn (Ecstasy) (Negative) U Benzodiazepines Scrn (Negative) Urine Cocaine Screen (Negative) U Marijuana (THC) Screen (Negative) 04/30/23 04/30/23 Range/Units 22:10 22:10 WBC (4.5-11.0) X10^3/uL RBC (4.0-5.2) X10^6/uL Hgb (12.0-16.0) g/dL Hct (36-46) % MCV (80-100) fL MCH (26-34) PG MCHC (30-36) % RDW (11.6-14.8) % Plt Count (150-400) X10^3/uL Neut % (Auto) (50-75) % Lymph % (Auto) (25-40) % [place] % (Auto) (3-14) % Eos % (Auto) (2-4) % Baso % (Auto) (0-2) % Neut # (Auto) (3258-9704) /uL Lymph # (Auto) (4311-5857) /uL [place] # (Auto) (0-900) /uL Eos # (Auto) (0-450) /uL Baso # (Auto) (0-100) /uL PT (10.1-12.7) SECONDS INR (0.9-1.3) APTT (26-36) SECONDS Sodium (137-145) mmol/L Potassium (3.4-5.1) mmol/L Chloride (98-107) mmol/L Carbon Dioxide (22-32) mmol/L BUN (7-17) mg/dL Creatinine (0.52-1.04) mg/dL Estimated GFR (>60) mL/min BUN/Creatinine Ratio (6-22) Glucose (70-100) mg/dL Calcium (8.4-10.2) mg/dL Magnesium (1.6-2.3) mg/dL Total Bilirubin (0.2-1.3) mg/dL AST (14-36) IU/L ALT (<35) IU/L Alkaline Phosphatase (38-126) U/L Total Creatine Kinase (30-135) U/L Troponin I (0.01-0.034) ng/mL Total Protein (6.3-8.2) g/dL Albumin (3.5-5.0) g/dL Globulin (1.7-4.1) g/dL Albumin/Globulin Ratio (1.0-2.8) Urine RBC 0-1/hpf (0-5/HPF) Urine WBC 0-1/hpf (0-5/HPF) Ur Squamous Epith Cells 0-1 /hpf (0-5/HPF) Urine Bacteria Occasional (0-1) (None) Ur Culture Indicated? Cult not indicated U Opiates 300ng/mL cut Positive H (Negative) Ur Oxycodone Screen Negative (Negative) Urine Methadone Screen Negative (Negative) Ur Barbiturates Screen Positive H (Negative) U Tricyclic Antidepress Negative (Negative) Ur Phencyclidine Scrn Negative (Negative) Ur Amphetamines Screen Negative (Negative) U Methamphetamines Scrn Negative (Negative) Ur MDMA Scrn (Ecstasy) Negative (Negative) U Benzodiazepines Scrn Positive H (Negative) Urine Cocaine Screen Negative (Negative) U Marijuana (THC) Screen Negative (Negative) Urine Dip Bedside Urine Glucose Negative Bedside Urine Bilirubin - Negative Bedside Urine Ketone - Negative Urine Specific [place] 1.01 Bedside Urine Occult Blood +/- Bedside Urine pH 6 Bedside Urine Protein - Negative Bedside Urine Urobilinogen - Negative Bedside Urine Nitrite - Negative Bedside Urine Leukocytes - Negative Esterase MDM Narrative Medical decision making narrative: 57-year-old female access the primary historian and presents with neurologic symptoms present since waking this morning. She states that she had a headache for the past day or 2 but that has since resolved, she went to bed without neurologic symptoms and woke up this morning with complaint of trouble with speech as well as weakness of her left upper and lower extremity. She is not activated as a code stroke given last known normal and use of anticoagulants but workup initiated nonetheless. Current stroke scale is 4. Labs are unremarkable, brain CT as well as head and neck CTA are unremarkable. Patient requires hospitalization for further evaluation including a likely MRI and echocardiogram. Discharge Plan Departure Patient Disposition: Admitted As Inpatient Clinical Impression: Cerebrovascular accident Admit Date/Time: 05/01/23 01:37 Admit Provider: Portia Gabriel
[2023-04-30 20:45] LABS: Add Manual Diff / Slide Review NO; Basophils Absolute Auto 100 /uL (0-100); Basophils Percent Auto 0.7 % (0-2); Eosinophils Absolute Auto 100 /uL (0-450); Eosinophils Percent Auto 0.7 % (2-4); Hematocrit 41.4 % (36-46); Hemoglobin 14.1 g/dL (12.0-16.0); Lymphocytes Absolute Auto 4200 /uL (1100-4500); Lymphocytes Percent Auto 40.2 % (25-40); Mean Corpuscular HGB Conc 34.2 % (30-36); Mean Corpuscular Hemoglobin 30.2 PG (26-34); Mean Corpuscular Volume 88.4 fL (80-100); Monocytes Absolute Auto 600 /uL (0-900); Monocytes Percent Auto 5.8 % (3-14); Neutrophils Absolute Auto 5400 /uL (1500-7000); Neutrophils Percent Auto 52.6 % (50-75); Platelet Count 273 X10^3/uL (150-400); Red Blood Cell Count 4.68 X10^6/uL (4.0-5.2); Red Cell Distribution Width 13.3 % (11.6-14.8); White Blood Cell Count 10.3 X10^3/uL (4.5-11.0)
[2023-04-30 20:46] LABS: INR 1.1 (0.9-1.3); Prothrombin Time 12.8 SECONDS (10.1-12.7)
[2023-04-30 20:49] LABS: PTT Partial Thromboplastin Tim 31 SECONDS (26-36)
[2023-04-30 20:53] LABS: Alanine Aminotransferase 23 IU/L (<35); Albumin 4.2 g/dL (3.5-5.0); Albumin Globulin Ratio 1.4 (1.0-2.8); Alkaline Phosphatase 51 U/L (38-126); Aspartate Aminotransferase 33 IU/L (14-36); BUN Creatinine Ratio 21.9 (6-22); Bilirubin Total 0.3 mg/dL (0.2-1.3); Blood Urea Nitrogen 14 mg/dL (7-17); Calcium 9.1 mg/dL (8.4-10.2); Carbon Dioxide 23 mmol/L (22-32); Chloride 106 mmol/L (98-107); Creatine Kinase 57 U/L (30-135); Estimated Glomerular Filt Rate > 60 mL/min (>60); Glucose 98 mg/dL (70-100); HEMOLYSIS < 15 (0-50); Magnesium 1.8 mg/dL (1.6-2.3); Potassium 3.8 mmol/L (3.4-5.1); Sodium 140 mmol/L (137-145); Total Protein 7.2 g/dL (6.3-8.2)
[2023-04-30 21:04] LABS: Troponin I < 0.012 ng/mL (0.01-0.034)
--- NOTE | 2023-04-30 21:47 | DI.CT.S_ITS ---
PROCEDURE: CT ANGIO HEAD AND NECK INDICATIONS: Left-sided weakness TECHNIQUE: After the administration of intravenous contrast, 1 mm thick sections acquired from the aortic arch through the [place]. 3-dimensional qcpuphc-ulizyrrxm-blrqllvtxk (MIP) and/or volume rendering reformats were acquired of the central intracranial vasculature and neck separately. For radiation dose reduction, the following was used: automated exposure control, adjustment of mA and/or kV according to patient size. COMPARISON: [facility], CT, CT STROKE, 04/30/2023, 21:09. FINDINGS: Image quality: Diagnostic. BRAIN: CSF spaces: Ventricles are normal in size and shape. Basal cisterns are patent. No extra-axial fluid collections. Brain: No significant abnormality of the brain can be seen. Skull and face: Calvarium and facial bones appear intact, without suspicious lesions. Orbits appear normal. Sinuses: Sinuses and mastoids are clear. HEAD CT ANGIOGRAPHY: Anterior circulation: Intracranial internal carotid arteries are normal in size and flow. The flow within the paired anterior cerebral arteries is normal and symmetric. The flow within the middle cerebral arteries is normal and symmetric. The anterior communicating artery is seen. No aneurysms are seen. Posterior circulation: Visualized portions of the vertebral arteries demonstrate normal caliber, and join to form a normal appearing basilar artery. Flow within the posterior cerebral arteries is normal and symmetric. No aneurysms are seen. NECK CT ANGIOGRAPHY: Carotid system: The great vessels demonstrate a conventional anatomy as they arise from the aortic arch. The origins of the common carotid arteries appear patent. The common carotid arteries demonstrate normal caliber and courses. The bifurcation regions are both widely patent. The internal carotid arteries demonstrate normal calibers and courses. Posterior circulation: The origins of the vertebral arteries both appear widely patent. The more superior extracranial portions of both vertebral arteries also demonstrate normal courses and calibers. They join to form a normal appearing basilar artery. Soft tissues: Visualized neck soft tissues demonstrate no suspicious abnormalities. Bones: No suspicious bony lesions. Visualized cervical spine appears normally aligned. IMPRESSION: Normal for age, source of current reported left-sided weakness is not found. Any quantitative measurements of stenosis were performed using NASCET criteria. Dictated by: Karri Rose M.D. on 04/30/2023 at 22:41 Approved by: Karri Rose M.D. on 04/30/2023 at 22:43
[2023-04-30 22:37] LABS: Ur Creatinine Normal (Normal); Ur Specific Gravity Normal (Normal)
[2023-04-30 22:38] LABS: UR Morphine/Opiate cutoff 300 Positive (Negative); Urine Amphetamines Negative (Negative); Urine Barbiturates Positive (Negative); Urine Benzodiazepines Positive (Negative); Urine Cocaine Negative (Negative); Urine MDMA Negative (Negative); Urine Methadone Negative (Negative); Urine Methamphetamines Negative (Negative); Urine Oxycodone Negative (Negative); Urine Phencyclidine Negative (Negative); Urine Tetrahydrocannabinol Negative (Negative); Urine Tricyclic Antidepressant Negative (Negative); Urine pH Normal (Normal)
[2023-04-30 22:42] LABS: Bacteria Urine Occasional (0-1); Culture Indicated Urine Cult Not Indicated; RBC Urine 0-1/HPF (0-5/HPF); Squamous Epithelial Cell Urine 0-1 /HPF (0-5/HPF); WBC Urine 0-1/HPF (0-5/HPF)
--- NOTE | 2023-04-30 23:42 | PC.NURSE ---
This RN to check on patient. Noticed small bottle of patient's medication at bedside. Asked if it was nitro to which the patient said yes. Pt declined taking any nitro. Asked if this RN could take the nitro to label it, lock it and store for her and patient declined.
[2023-05-01] VITALS (14 sets, daily range): BP systolic 101–134; BP diastolic 44–60; PULSE 52–64; RESP 15–20; TEMP 36.2–36.4; O2SAT 94–99; BMI 25.5
--- NOTE | 2023-05-01 | DI.ECHO.S_ITS ---
[place] [facility]---------+ [facility] +---------+ : : [address] : : : : [id number] : : : : Phone: [phone]+ Echocardiogram Report + + :Name: JOSEFINA MENSAH Study Date: 05/01/2023 Height: 69 in : :[facility] ReadingLocation: Weight: 173 lb : : Gender: Female BSA: 1.9 m2 : :: 1965 Age: 57 yrs BP: 134/55 mmHg: :Reason For Study: CVA : : Performed By: Ermelinda Corado : :Referring: UNSPECIFIED : + + Interpretation Summary The left ventricle is normal in size and wall thickness. The left ventricle is hyperdynamic. The ejection fraction is estimated to be 70-75%. There are no focal wall motion abnormalities. Diastolic parameters suggest a relaxation abnormality of the left ventricle, consistent with probable normal filling pressures. The right ventricle grossly appears normal in size with probable normal systolic function. Pulmonary artery pressures cannot be estimated because of the lack of a measurable TR jet velocity but the IVC suggests a CVP of around 3 mmHg. The left atrial size is normal. Right atrial size is normal. There is no significant valvular heart disease. The ascending aorta is mildly enlarged. Doppler interrogation and injection of saline echo contrast shows no evidence for an interatrial shunt. Procedure: A two-dimensional transthoracic echocardiogram with color flow and Doppler was performed. The study quality was technically adequate. Comparison is made with the echocardiogram of 03/03/23 from [facility]. The patient was in a bradycardic rhythm during the exam. Left Ventricle: The left ventricle is normal in size and wall thickness. The estimated left ventricular end diastolic volume is 40.5 ml. There is no thrombus. There is no ventricular septal defect visualized. The left ventricle is hyperdynamic. The ejection fraction is estimated to be 70-75%. There are no focal wall motion abnormalities. Diastolic parameters suggest a relaxation abnormality of the left ventricle, consistent with probable normal filling pressures. Right Ventricle: The right ventricle grossly appears normal in size with probable normal systolic function. Atria: The left atrial size is normal. Right atrial size is normal. Doppler interrogation and injection of saline echo contrast shows no evidence for an interatrial shunt. Mitral Valve: The mitral valve is normal in structure and function. There is no mitral valve stenosis. There is no mitral regurgitation noted. Aortic Valve: The aortic valve is trileaflet. The aortic valve opens well. There is no aortic valve stenosis. No aortic regurgitation is present. Tricuspid Valve: The tricuspid valve is normal in structure and function. There is a trace or physiologic amount of tricuspid regurgitation. Pulmonary artery pressures cannot be estimated because of the lack of a measurable TR jet velocity but the IVC suggests a CVP of around 3 mmHg. Pulmonic Valve: The pulmonic valve is not well seen, but is grossly normal. There is no pulmonic valvular regurgitation. There is no significant valvular heart disease. Great Vessels: The aortic root is normal size. The ascending aorta is mildly enlarged. The aortic arch could not be visualized. The IVC is of normal diameter and collapses greater than 50% with a sniff. This suggests a low right atrial pressure of 3 mm Hg. Pericardium/ Pleura There is no pericardial effusion. There is an anterior echo-free space consistent with a fat pad. There is no pleural effusion. MMode/2D Measurements & Calculations LVIDd: 4.5 cm LVOT diam: 2.3 cm LVIDs: 3.1 cm Ao root diam: 3.3 cm FS: 31.0 % asc Aorta Diam: 3.6 cm EPSS: 0.51 cm IVSd: 0.82 cm LVPWd: 0.77 cm LV zavala. diameter/BSA (cm/m^2): 2.3 LV sys. diameter/BSA (cm/m^2): 1.6 LA A2 area: 15.4 cm2 RA long axis: 6.0 cm LA A4 area: 15.7 cm2 RA area: 17.9 cm2 LA length (vol): 5.7 cm RA vol: 45.1 ml LA vol: 36.1 ml RA : 23.2 ml/m2 LA vol index: 18.6 ml/m2 IVC diam: 1.6 cm TAPSE: 2.1 cm Doppler Measurements & Calculations Ao V2 max: 142.0 cm/sec LVOT Max Coleman: 108.6 cm/sec Ao V2 mean: 82.0 cm/sec LV V1 max P.7 mmHg Ao max P.1 mmHg LV V1 VTI: 22.2 cm Ao mean P.2 mmHg VIVEK(I,D): 3.7 cm2 Ao V2 VTI: 24.8 cm VIVEK(V,D): 3.2 cm2 sev ratio: 0.89 VIVEK indexed to BSA (cm^2/m^2): 1.9 MV E max coleman: 62.3 cm/sec PA V2 max: 86.9 cm/sec MV A max coleman: 88.9 cm/sec PA V2 mean: 64.6 cm/sec MV E/A: 0.70 PA mean P.8 mmHg Med Peak E' Coleman: 8.0 cm/sec PA pr(Accel): 14.8 mmHg E/E' med: 7.7 Lat Peak E' Coleman: 8.7 cm/sec E/E' lat: 7.1 E/e' average: 7.4 MV dec time: 0.28 sec SV(LVOT): 92.7 ml Reading Physician:04:38 PM
--- NOTE | 2023-05-01 | DI.MRI.S_ITS ---
PROCEDURE: MR HEAD/BRAIN WO CON INDICATIONS: sudden onset left sided weakness TECHNIQUE: Noncontrast axial T1 spin echo, axial T2 fast spin echo, sagittal and axial FLAIR, coronal T2 fast spin echo, axial gradient echo, axial diffusion and ADC through the brain. COMPARISON: None. FINDINGS: Image quality: Excellent. CSF Spaces: Basal cisterns are patent. No extra-axial fluid collections. Ventricles are normal in size and shape. Brain: No intracranial masses or hemorrhage. [place]/white matter interface is normal. Brainstem appears normal. Diffusion-weighted sequence is unremarkable without evidence of acute infarct. Normal intravascular flow voids are present. Skull and face: Calvarium has normal marrow signal. Orbits appear normal. Sinuses: Sinuses and mastoids are clear. IMPRESSION: Normal MRI of the brain Approved by: Vadim Diego M.D. on 05/01/2023 at 8:56
--- NOTE | 2023-05-01 | PC.NURSE ---
Per CONTACT AGENT, patient sat up and vomited. Provider made aware. Medicated per NOV.
[2023-05-01] MEDS: ONDANSETRON 4 MG/2 ML INJ IV (00:01)
--- NOTE | 2023-05-01 01:26 | PM.HP.1 ---
History of Present Illness History of Present Illness Date Patient Seen: 05/01/23 Time Patient Seen: 02:28 Chief complaint: left sided weakness Narrative: 57. year old female with familial hypercholesterolemia, migraines, HTN here with left sided weakness and speaking difficulty. She states she developed a headache 4 days ago which was bad and finally has improved. She states that when she went to bed yesterday she did not have the weakness but woke up with it this am. She has struggled all day with her speech and came in [facility] for evaluation. She states that she also has angina alot and had some today but is currently pain free. She takes Repatha every 2 weeks for cholesterol greater than 1200 and takes metoprolol and lisinopril for HTN. She also takes fenofibrate and Vasepa for her cholesterol. She denies fever, dyspnea, nausea, vomiting or diarrhea but did appear nauseous at the end of the exam. She has no prior history of stroke but does take Eliquis 5 mg bid for DVT in the past. She was evaluated in the ED and felt to have a CVA out of the window. She was not a TPA candidate because of time and DOAC. CT head was negative as was CTA head and neck. Lab work was not revealing and her BP was controlled. She was admitted for further management. [facility] Social History Smoking Status: Former smoker Meds Home Medications and Allergies Home Medications Medication Instructions Recorded Confirmed Type pantoprazole 40 mg tablet,delayed 20 mg PO BID ##0 07/29/17 05/01/23 History release uorgwaflmf-nwtzzeiuolmew-warzildf 1 cap PO Q4H PRN Pain (Scale Score 03/31/18 05/01/23 History 50 mg-300 mg-40 mg capsule 4-6) (Fioricet) Allergies Allergy/AdvReac Type Severity Reaction Status Date / Time azithromycin [AZITHROMYCIN] Allergy Unknown Verified 05/26/18 10:12 Sulfa (Sulfonamide Allergy Unknown RESPIRATORY Verified 05/26/18 10:12 Antibiotics) DISTRESS [SULFA (SULFONAMIDE ANTIBIOTICS)] sumatriptan [From IMITREX] Allergy Unknown RESP Verified 05/26/18 10:12 DISTRESS Review of Systems Review of Systems Narrative: negative except when annotated Constitutional Comments: no fever Eyes Comments: no visual complaint Cardiovascular Comments: chest pain Respiratory Comments: no dyspnea Gastrointestinal Comments: no N/V/D Genitourinary Comments: no dysuria Musculoskeletal Comments: chronic back pain Neurologic Comments: speech issues, weakness on one side, headaches Exam Vital Signs (past 8 hours): - 04/30/23 20:09 04/30/23 20:27 04/30/23 20:30 Temperature 97.8 F Pulse Rate 58 L 58 L 60 Respiratory Rate 14 23 Blood Pressure 147/73 H Pulse Oximetry 100 98 Oxygen Delivery Method Room Air 04/30/23 21:00 04/30/23 21:12 04/30/23 21:12 Temperature Pulse Rate 60 60 Respiratory Rate 20 17 Blood Pressure 129/62 Pulse Oximetry 97 96 Oxygen Delivery Method Room Air 04/30/23 21:30 04/30/23 22:13 04/30/23 22:13 Temperature Pulse Rate 60 62 Respiratory Rate 17 18 Blood Pressure 135/63 Pulse Oximetry 96 99 Oxygen Delivery Method 04/30/23 22:30 04/30/23 22:30 04/30/23 23:00 Temperature Pulse Rate 56 L Respiratory Rate 19 Blood Pressure 135/63 126/60 Pulse Oximetry 97 Oxygen Delivery Method 04/30/23 23:00 04/30/23 23:30 04/30/23 23:30 Temperature Pulse Rate 64 58 L Respiratory Rate 20 18 Blood Pressure 126/60 Pulse Oximetry 95 98 Oxygen Delivery Method 05/01/23 00:00 05/01/23 00:01 05/01/23 00:01 Temperature Pulse Rate 63 57 L Respiratory Rate 16 15 Blood Pressure 122/56 L Pulse Oximetry 99 98 Oxygen Delivery Method Room Air 05/01/23 00:30 05/01/23 00:30 05/01/23 00:36 Temperature Pulse Rate 54 L Respiratory Rate 15 Blood Pressure 101/49 L 127/60 Pulse Oximetry 96 Oxygen Delivery Method Room Air 05/01/23 00:36 Temperature Pulse Rate 58 L Respiratory Rate 20 Blood Pressure Pulse Oximetry 97 Oxygen Delivery Method Room Air Oxygen Delivery Method Room Air Const General: cooperative and No acute distress HENMT Head: normal to inspection Eyes Alignment and Position: alignment normal Periorbital: periorbital findings normal Eyelids: eyelids normal Sclera: sclerae normal Pupils: PERRL EOM: No nystagmus Neck Neck: normal visual inspection and supple Chest Chest: normal inspection of the chest Resp Effort & Inspection: normal respiratory effort Auscultation: clear to auscultation bilaterally Cardio Rate: regular rate Rhythm: regular rhythm Heart Sounds: S1 normal and S2 normal GI Inspection: normal to inspection Palpation: soft, No guarding and No tender Percussion: normal to percussion Skin General: no rashes or lesions noted, turgor normal, No jaundice, No mottling and No purpura Neuro Cranial Nerves: No CN's II-XI intact bilaterally, PERRL, No facial strength normal, No nystagmus and other (very slight left sided facial droop, there is left leg lag L pronator drift) Extrem Right upper extremity: normal to inspection and full ROM Right lower extremity: normal to inspection and full ROM Left lower extremity: normal to inspection and full ROM Psych Appearance: grossly normal Mental Status: mental status grossly normal Speech and Movement: other (halting, searches for words) Objective Imaging CT scan - head: Radiologist's impression: negative Chest x-ray: Radiologist's impression: negative Labs 04/30/23 20:30 04/30/23 20:30 Labs: Laboratory Results - last 24 hr 04/30/23 04/30/23 04/30/23 20:30 20:30 20:30 WBC 10.3 RBC 4.68 Hgb 14.1 Hct 41.4 MCV 88.4 MCH 30.2 MCHC 34.2 RDW 13.3 Plt Count 273 Neut % (Auto) 52.6 Lymph % (Auto) 40.2 H [place] % (Auto) 5.8 Eos % (Auto) 0.7 L Baso % (Auto) 0.7 Neut # (Auto) 5400 Lymph # (Auto) 4200 [place] # (Auto) 600 Eos # (Auto) 100 Baso # (Auto) 100 PT 12.8 H INR 1.1 APTT 31 Sodium 140 Potassium 3.8 Chloride 106 Carbon Dioxide 23 BUN 14 Creatinine 0.64 Estimated GFR > 60 BUN/Creatinine Ratio 21.9 Glucose 98 Calcium 9.1 Magnesium 1.8 Total Bilirubin 0.3 AST 33 ALT 23 Alkaline Phosphatase 51 Total Creatine Kinase 57 Troponin I < 0.012 Total Protein 7.2 Albumin 4.2 Globulin 3.0 Albumin/Globulin Ratio 1.4 Urine RBC Urine WBC Ur Squamous Epith Cells Urine Bacteria Ur Culture Indicated? U Opiates 300ng/mL cut Ur Oxycodone Screen Urine Methadone Screen Ur Barbiturates Screen U Tricyclic Antidepress Ur Phencyclidine Scrn Ur Amphetamines Screen U Methamphetamines Scrn Ur MDMA Scrn (Ecstasy) U Benzodiazepines Scrn Urine Cocaine Screen U Marijuana (THC) Screen 04/30/23 04/30/23 22:10 22:10 WBC RBC Hgb Hct MCV MCH MCHC RDW Plt Count Neut % (Auto) Lymph % (Auto) [place] % (Auto) Eos % (Auto) Baso % (Auto) Neut # (Auto) Lymph # (Auto) [place] # (Auto) Eos # (Auto) Baso # (Auto) PT INR APTT Sodium Potassium Chloride Carbon Dioxide BUN Creatinine Estimated GFR BUN/Creatinine Ratio Glucose Calcium Magnesium Total Bilirubin AST ALT Alkaline Phosphatase Total Creatine Kinase Troponin I Total Protein Albumin Globulin Albumin/Globulin Ratio Urine RBC 0-1/hpf Urine WBC 0-1/hpf Ur Squamous Epith Cells 0-1 /hpf Urine Bacteria Occasional (0-1) Ur Culture Indicated? Cult not indicated U Opiates 300ng/mL cut Positive H Ur Oxycodone Screen Negative Urine Methadone Screen Negative Ur Barbiturates Screen Positive H U Tricyclic Antidepress Negative Ur Phencyclidine Scrn Negative Ur Amphetamines Screen Negative U Methamphetamines Scrn Negative Ur MDMA Scrn (Ecstasy) Negative U Benzodiazepines Scrn Positive H Urine Cocaine Screen Negative U Marijuana (THC) Screen Negative Assessment & Plan Assessment and plan (1) Cerebrovascular accident: Status: Acute Plan CVA patient with likely CVA outside the window for TPA ordered MRI for am OT/PT/Speech consults will need rehab hold am eliquis until she is evaluated ECHO CT/CTA negative permissive HTN aspirin 81 mg po daily Hypercholesterolemia lipid panel continue Vascepa, Fenofibrate gets Repatha q2 weeks Hypertension continue with metoprolol 25 mg bid and lisinopril 10 mg daily History of DVT currently on Eliquis will need to restart in 24 hours Scores NIHSS Ask month/age: Answers both questions correctly. Best gaze horizontal: Normal Left arm drift: Drifts down, not to bed Right arm drift: No drift for full 10 sec Left leg drift: Drifts down, not to bed Right leg drift: No drift for full 5 sec Limb ataxia: Present in two limbs Sensory on face/arms/legs: Normal, no sensory loss Best language: Mild to moderate, slurs some words Dysarthria: Normal Extinction or inattention: No abnormality Quality Stroke Contraindication Not Initiating IV-Tpa: Not indicated Symptom Onset Unknown: Yes Rehab Services Assessed: Rehabilitation therapy
[2023-05-01] MEDS: ACETAMINOPHEN 325 MG TABLET 650 MG PO ×2 (02:54→21:35)
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
[2023-05-01] MEDS: APIXABAN 5 MG TABLET PO ×2 (11:17→21:22)
[2023-05-01] MEDS: FISH OIL 1,000 MG CAPSULE 2000 MG PO ×2 (11:17→21:22)
[2023-05-01] MEDS: FENOFIBRATE, MICRONIZED 67 MG CAPSULE 134 MG PO (11:17)
[2023-05-01] MEDS: ASPIRIN EC 81 MG TABLET PO (11:17)
--- NOTE | 2023-05-01 12:46 | PM.PN.1 ---
Subjective Subjective Date Patient Seen: 05/01/23 Time Patient Seen: 08:00 Interval history: She speaks fluently but haltingly. She says she feels weak on the left side. She says she has no problems swallowing. She says she has trouble reading due to blurry vision. Exam Vital Signs (past 8 hours): - 05/01/23 05:00 05/01/23 08:39 Temperature 97.2 F L Pulse Rate 52 L 58 L Respiratory Rate 18 Blood Pressure 117/57 L 112/44 L Pulse Oximetry 98 96 Oxygen Flow Rate 0 0 Oxygen Delivery Method Room Air Oxygen Flow Rate 0 Narrative Exam Narrative: GEN: no acute distress CV: regular rate and rhythm PULM: clear bilaterally ABD: soft, nontender, nondistended EXT: warm and well perfused, no edema NEURO: halting speech, but fluent, no facial droop, normal upper and lower extremity strength on my exam, observed patient walking around the nursing unit with good gait Objective Labs 04/30/23 20:30 04/30/23 20:30 Labs: Laboratory Results - last 24 hr 04/30/23 04/30/23 04/30/23 20:30 20:30 20:30 WBC 10.3 RBC 4.68 Hgb 14.1 Hct 41.4 MCV 88.4 MCH 30.2 MCHC 34.2 RDW 13.3 Plt Count 273 Neut % (Auto) 52.6 Lymph % (Auto) 40.2 H [place] % (Auto) 5.8 Eos % (Auto) 0.7 L Baso % (Auto) 0.7 Neut # (Auto) 5400 Lymph # (Auto) 4200 [place] # (Auto) 600 Eos # (Auto) 100 Baso # (Auto) 100 PT 12.8 H INR 1.1 APTT 31 Sodium 140 Potassium 3.8 Chloride 106 Carbon Dioxide 23 BUN 14 Creatinine 0.64 Estimated GFR > 60 BUN/Creatinine Ratio 21.9 Glucose 98 Calcium 9.1 Magnesium 1.8 Total Bilirubin 0.3 AST 33 ALT 23 Alkaline Phosphatase 51 Total Creatine Kinase 57 Troponin I < 0.012 Total Protein 7.2 Albumin 4.2 Globulin 3.0 Albumin/Globulin Ratio 1.4 Urine RBC Urine WBC Ur Squamous Epith Cells Urine Bacteria Ur Culture Indicated? U Opiates 300ng/mL cut Ur Oxycodone Screen Urine Methadone Screen Ur Barbiturates Screen U Tricyclic Antidepress Ur Phencyclidine Scrn Ur Amphetamines Screen U Methamphetamines Scrn Ur MDMA Scrn (Ecstasy) U Benzodiazepines Scrn Urine Cocaine Screen U Marijuana (THC) Screen 04/30/23 04/30/23 22:10 22:10 WBC RBC Hgb Hct MCV MCH MCHC RDW Plt Count Neut % (Auto) Lymph % (Auto) [place] % (Auto) Eos % (Auto) Baso % (Auto) Neut # (Auto) Lymph # (Auto) [place] # (Auto) Eos # (Auto) Baso # (Auto) PT INR APTT Sodium Potassium Chloride Carbon Dioxide BUN Creatinine Estimated GFR BUN/Creatinine Ratio Glucose Calcium Magnesium Total Bilirubin AST ALT Alkaline Phosphatase Total Creatine Kinase Troponin I Total Protein Albumin Globulin Albumin/Globulin Ratio Urine RBC 0-1/hpf Urine WBC 0-1/hpf Ur Squamous Epith Cells 0-1 /hpf Urine Bacteria Occasional (0-1) Ur Culture Indicated? Cult not indicated U Opiates 300ng/mL cut Positive H Ur Oxycodone Screen Negative Urine Methadone Screen Negative Ur Barbiturates Screen Positive H U Tricyclic Antidepress Negative Ur Phencyclidine Scrn Negative Ur Amphetamines Screen Negative U Methamphetamines Scrn Negative Ur MDMA Scrn (Ecstasy) Negative U Benzodiazepines Scrn Positive H Urine Cocaine Screen Negative U Marijuana (THC) Screen Negative [facility] Social History household members: friend(s) Smoking Status: Former smoker alcohol intake: never Assessment & Plan Assessment & Plan narrative: 1. Left sided weakness, speech abnormality, blurry vision -in context of also having a headache -MRI read as negative for stroke -ECHO pending -etiology may be hemiplegic migraine vs stroke (not detectable on imaging) vs other -for now continue aspirin, statin -start verapamil -appreciate PT consult -OT, speech consulted -social work to evaluate psychosocial background 2. Protein C, S deficiency with history of DVT/PE -continue eliquis 3. Hypertension -hold anti-hypertensives for now 4. Hyperlipidemia -continue home medications Quality Stroke Contraindication Not Initiating IV-Tpa: Not indicated Symptom Onset Unknown: Yes Rehab Services Assessed: Rehabilitation therapy VTE Deep Vein Thrombosis/Pulmonary Embolism Present on Admission: No
[2023-05-01 13:43] LABS: BUN Creatinine Ratio 23.3 (6-22); Blood Urea Nitrogen 14 mg/dL (7-17); Calcium 9.3 mg/dL (8.4-10.2); Carbon Dioxide 25 mmol/L (22-32); Chloride 104 mmol/L (98-107); Estimated Glomerular Filt Rate > 60 mL/min (>60); Glucose 112 mg/dL (70-100); HEMOLYSIS < 15 (0-50); Potassium 4.4 mmol/L (3.4-5.1); Sodium 140 mmol/L (137-145)
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
[2023-05-01] MEDS: ATORVASTATIN 20 MG TABLET 40 MG PO (21:22)
--- NOTE | 2023-05-01 21:32 | PC.NURSE ---
Pt BP and HR both low. Verapamil and metoprolol doses not given per Dr. Gabriel.
[2023-05-02 00:19] VITALS: BP 130/62; PULSE 57; RESP 16; TEMP 36.4; O2SAT 97
[2023-05-02 01:00] VITALS: O2SAT 96
[2023-05-02 04:00] VITALS: BP 111/40; PULSE 53; RESP 16; TEMP 36.8; O2SAT 97
--- NOTE | 2023-05-02 04:17 | PC.NURSE ---
Pt reports she is allergic to statins, and had forgotten earlier. States that reaction to medication is muscle cramps, aches. No c/o sxs at this time.
[2023-05-02 04:59] LABS: Hematocrit 42.8 % (36-46); Hemoglobin 14.2 g/dL (12.0-16.0); Mean Corpuscular HGB Conc 33.2 % (30-36); Mean Corpuscular Hemoglobin 29.6 PG (26-34); Platelet Count 243 X10^3/uL (150-400); Red Blood Cell Count 4.81 X10^6/uL (4.0-5.2); Red Cell Distribution Width 13.3 % (11.6-14.8); White Blood Cell Count 7.1 X10^3/uL (4.5-11.0)
[2023-05-02 05:00] VITALS: O2SAT 97
[2023-05-02 05:15] LABS: Cholesterol 140 mg/dL (140-199); HDL Cholesterol 43 mg/dL (40-60); LDL Cholesterol Calculated 29 mg/dL (<100); Triglycerides 338 mg/dL (35-150)
[2023-05-02 08:00] VITALS: BP 108/60; PULSE 64; RESP 16; TEMP 36.3; O2SAT 94
[2023-05-02] MEDS: FISH OIL 1,000 MG CAPSULE 2000 MG PO (08:41)
[2023-05-02] MEDS: ASPIRIN EC 81 MG TABLET PO (08:41)
[2023-05-02] MEDS: APIXABAN 5 MG TABLET PO (08:41)
[2023-05-02] MEDS: FENOFIBRATE, MICRONIZED 67 MG CAPSULE 134 MG PO (08:41)
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
--- NOTE | 2023-05-02 13:18 | PC.NURSE ---
Discharge Note Patient A&O, VSS, RA, no complaints of pain/discomfort. Patient agreeable to discharge plan. Discharge packet reviewed with patient and son, all questions/concerns addressed. PIV/TELE discontinued. Patient able to dress self and pack all belongings. Patient reminded to mixing picker tender prescriptions from preferred pharmacy and medications retrieved from pharmacy. Patient taken down via wheelchair to POV.
--- NOTE | 2023-05-02 13:33 | CM.DPC ---
DCP Discharge Home Per MD, pt medically stable to d/c home today with no identified barriers to discharge. Per OT, pt was independent in the shower, still with some weakness but inconsistent and does not appear TIA/CVA related and safe for d/c home. Per RN, pt did not have concerns with discharge home and had transport but some concerns with her UDS+ that does not appear to have been addressed and pt did not answer questions regarding this. Pt had discharged home before SW aware of UDS+ results. Plan: Patient discharged home via POV and given resources for her home stressors and legal advocacy and to have outpt f/u. KEO Abraham
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
== END 2023-05-02 13:00 | disposition home or self-care (01) | DRG 45 ==
LOC: ED 23:35 → AC 05-01 01:52
PROVIDERS: Internal Medicine; Admitting Provider Internal Medicine; Emergency Provider Emergency Medicine; PCP Internal Medicine; Referring Provider Emergency Medicine; Visit Provider Internal Medicine
DX: I63.9 Cerebral infarction, unspecified (principal); D68.59 Other primary thrombophilia; I10 Essential (primary) hypertension; G81.94 Hemiplegia, unspecified affecting left nondominant side; E78.5 Hyperlipidemia, unspecified; R29.704 NIHSS score 4; R29.703 NIHSS score 3; G43.909 Migraine, unspecified, not intractable, without status migrainosus; Z87.891 Personal history of nicotine dependence; Z86.718 Personal history of other venous thrombosis and embolism; Z79.01 Long term (current) use of anticoagulants; Z86.711 Personal history of pulmonary embolism
CPT/HCPCS: 36415; 70450; 70496; 70498; 70551; 71045; 80048; 80053; 80061; 80305; 81003; 81015; 82550; 83735; 84484; 85025; 85027; 85610; 85730; 93005; 93306; 96374; 97161; 97166; 97535; 99285; G0378; A9270; J2405; Q9967

== ENCOUNTER 2023-06-29 11:14 | Emergency (ER) | payer OTHER, MEDICAID, SELFPAY ==
[2023-05-01 01:48] VITALS: BMI 25.5
[2023-06-29] VITALS (21 sets, daily range): BP systolic 109–154; BP diastolic 53–75; PULSE 55–82; RESP 16–26; TEMP 36.6; O2SAT 95–100; BMI 24.7
--- NOTE | 2023-06-29 11:26 | DI.CT.S_ITS ---
PROCEDURE: CT STROKE INDICATIONS: Positive BE-FAST, Stroke symptoms TECHNIQUE: Noncontrast 4.5 mm thick angled axial sections acquired from the foramen magnum to the vertex, with coronal reformats. For radiation dose reduction, the following was used: automated exposure control, adjustment of mA and/or kV according to patient size. COMPARISON: [facility], CT, CT STROKE, 04/30/2023, 21:09. FINDINGS: Image quality: Excellent. CSF spaces: Basal cisterns are patent. No extra-axial fluid collections. Ventricles are normal in size and shape. Brain: No midline shift. No intracranial masses or hemorrhage. Felipe-white matter interface is normal. Skull and face: Calvarium and visualized facial bones are intact, without suspicious lesions. Sinuses: Visualized sinuses and mastoids are clear. IMPRESSION: No acute intracranial abnormality. Comment: Findings were discussed with Dr. Olguin on 06/29/2023 at 1203 hours This study fulfills neurological imaging criteria for inclusion or exclusion of acute stroke therapies based on available published neurological imaging guidelines. Dictated by: Galileo Zarate M.D. on 06/29/2023 at 12:02 Approved by: Galileo Zarate M.D. on 06/29/2023 at 12:04
--- NOTE | 2023-06-29 11:26 | DI.RAD.S_ITS ---
PROCEDURE: XR CHEST 1V INDICATIONS: Possible stroke TECHNIQUE: One view of the chest was acquired. [facility], [facility], CHEST 1 VIEW, 06/06/2017, 14:02. FINDINGS: Surgical changes and devices: None. Lungs and pleura: Lungs are clear. No pleural effusions or pneumothorax. Mediastinum: Mediastinal contours appear normal. Heart size is normal. Bones and chest wall: No suspicious bony lesions. Overlying soft tissues appear unremarkable. IMPRESSION: Portable chest within normal limits for age. Dictated by: James Kline M.D. on 06/29/2023 at 12:15 Approved by: James Kline M.D. on 06/29/2023 at 12:16
--- NOTE | 2023-06-29 11:39 | DI.CT.S_ITS ---
PROCEDURE: CT ANGIO HEAD AND NECK INDICATIONS: CODE STROKE TECHNIQUE: After the administration of intravenous contrast, 1 mm thick sections acquired from the aortic arch through the [place] of [place]. 3-dimensional qbnqsru-glpjnhxxm-odjwegywdk (MIP) and/or volume rendering reformats were acquired of the central intracranial vasculature and neck separately. For radiation dose reduction, the following was used: automated exposure control, adjustment of mA and/or kV according to patient size. COMPARISON: [facility], CT, CT ANGIO HEAD AND NECK, 04/30/2023, 22:05. FINDINGS: Image quality: Diagnostic. BRAIN: CSF spaces: Ventricles are normal in size and shape. Basal cisterns are patent. No extra-axial fluid collections. Brain: No significant abnormality of the brain can be seen. Skull and face: Calvarium and facial bones appear intact, without suspicious lesions. Orbits appear normal. Sinuses: Sinuses and mastoids are clear. HEAD CT ANGIOGRAPHY: Anterior circulation: Intracranial internal carotid arteries are normal in size and flow. The flow within the paired anterior cerebral arteries is normal and symmetric. The flow within the middle cerebral arteries is normal and symmetric. The anterior communicating artery is seen. No aneurysms are seen. Posterior circulation: Visualized portions of the vertebral arteries demonstrate normal caliber, and join to form a normal appearing basilar artery. Flow within the posterior cerebral arteries is normal and symmetric. No aneurysms are seen. NECK CT ANGIOGRAPHY: Carotid system: The great vessels demonstrate a bovine arch anatomy as they arise from the aortic arch. The origins of the common carotid arteries appear patent. The common carotid arteries demonstrate normal caliber and courses. The bifurcation regions are both widely patent. The internal carotid arteries demonstrate normal calibers and courses. Posterior circulation: The origins of the vertebral arteries both appear widely patent. The more superior extracranial portions of both vertebral arteries also demonstrate normal courses and calibers. They join to form a normal appearing basilar artery. Soft tissues: Visualized neck soft tissues demonstrate no suspicious abnormalities. Bones: No suspicious bony lesions. Visualized cervical spine appears normally aligned. IMPRESSION: 1. Unremarkable CTA head. No stenosis, aneurysm, occlusion, or focal filling defect. 2. Patent carotids. Otherwise unremarkable CTA neck. Comment: Findings were discussed with Dr. Olguin on 06/29/2023 at 1214 hours Any quantitative measurements of stenosis were performed using NASCET criteria. Dictated by: Galileo Zarate M.D. on 06/29/2023 at 12:12 Approved by: Galileo Zarate M.D. on 06/29/2023 at 12:15
--- NOTE | 2023-06-29 11:44 | PC.NURSE ---
Pt went to CT at 1139.
[2023-06-29 11:48] LABS: Add Manual Diff / Slide Review NO; Basophils Absolute Auto 100 /uL (0-100); Eosinophils Absolute Auto 0 /uL (0-450); Eosinophils Percent Auto 0.4 % (2-4); Hematocrit 40.3 % (36-46); Hemoglobin 13.7 g/dL (12.0-16.0); Lymphocytes Absolute Auto 2800 /uL (1100-4500); Mean Corpuscular Hemoglobin 30.7 PG (26-34); Mean Corpuscular Volume 90.4 fL (80-100); Monocytes Absolute Auto 400 /uL (0-900); Monocytes Percent Auto 4.6 % (3-14); Neutrophils Absolute Auto 5400 /uL (1500-7000); Platelet Count 290 X10^3/uL (150-400); Red Blood Cell Count 4.46 X10^6/uL (4.0-5.2); Red Cell Distribution Width 13.7 % (11.6-14.8); White Blood Cell Count 8.7 X10^3/uL (4.5-11.0)
[2023-06-29 11:49] LABS: INR 1.2 (0.9-1.3); Prothrombin Time 13.4 SECONDS (10.1-12.7)
[2023-06-29 11:51] LABS: PTT Partial Thromboplastin Tim 36 SECONDS (26-36)
[2023-06-29 12:05] LABS: Alanine Aminotransferase 23 IU/L (<35); Albumin 4.4 g/dL (3.5-5.0); Albumin Globulin Ratio 1.6 (1.0-2.8); Alkaline Phosphatase 49 U/L (38-126); Aspartate Aminotransferase 33 IU/L (14-36); BUN Creatinine Ratio 28.8 (6-22); Bilirubin Total 0.2 mg/dL (0.2-1.3); Blood Urea Nitrogen 17 mg/dL (7-17); Calcium 9.3 mg/dL (8.4-10.2); Carbon Dioxide 25 mmol/L (22-32); Chloride 105 mmol/L (98-107); Creatine Kinase 72 U/L (30-135); Estimated Glomerular Filt Rate > 60 mL/min (>60); Globulin 2.7 g/dL (1.7-4.1); Glucose 114 mg/dL (70-100); HEMOLYSIS < 15 (0-50); Sodium 140 mmol/L (137-145); Total Protein 7.1 g/dL (6.3-8.2)
[2023-06-29 12:16] LABS: Troponin I < 0.012 ng/mL (0.01-0.034)
--- NOTE | 2023-06-29 12:18 | ED_ITS ---
HPI - Neuro Symptoms/Deficit <Be Olguin MD - Last Filed: 07/05/23 08:28> General Chief Complaint: Neuro Symptoms/Deficit Stated Complaint: couple strokes/on blood thinners/heart attack Time Seen by Provider: 06/29/23 11:42 Source: patient Mode of arrival: Ambulatory History of Present Illness HPI Narrative: Patient here for expressive aphasia symptoms for the past 3 days. She states she can think of what she wants to say but it is hard for to say it. She does have stuttering at this point today. Denies any new weakness numbness tingling or weakness. Patient has had strokes in the past. Admitted here in April for stroke. Patient is on Eliquis for protein S deficiency. Patient is on daily baby aspirin as well. Patient outside window for endovascular studies or tPA. On Anticoagulants: Yes (Eliquis) Related Data Home Medications Medication Instructions Recorded Confirmed pantoprazole 40 mg tablet,delayed 20 mg PO BID ##0 07/29/17 06/29/23 release nuhexqkmko-nofdljmpdvcbg-qmlionon 1 cap PO Q4H PRN Pain (Scale Score 03/31/18 06/29/23 50 mg-300 mg-40 mg capsule 4-6) (Fioricet) evolocumab 140 mg/mL subcutaneous 140 mg SUBCUT 12-24XD 06/29/23 06/29/23 syringe (Repatha Syringe) hydroxyzine HCl 25 mg/mL 25 mg 06/29/23 intramuscular solution lisinopril 10 mg tablet 10 mg PO BID 06/29/23 06/29/23 metoprolol succinate 50 mg 50 mg PO BID 06/29/23 06/29/23 tablet,extended release 24 hr zolpidem 5 mg tablet (Ambien) 5 mg 06/29/23 Previous Rx's Medication Instructions Recorded apixaban 5 mg tablet 5 mg PO BID #60 tabs 05/02/23 verapamil 120 mg 24 hr 120 mg PO DAILY #30 caps 05/02/23 capsule,extended release Allergies Allergy/AdvReac Type Severity Reaction Status Date / Time azithromycin [AZITHROMYCIN] Allergy Unknown Verified 06/29/23 12:58 Sulfa (Sulfonamide Allergy Unknown RESPIRATORY Verified 06/29/23 12:58 Antibiotics) DISTRESS [SULFA (SULFONAMIDE ANTIBIOTICS)] sumatriptan [From IMITREX] Allergy Unknown RESP Verified 06/29/23 12:58 DISTRESS Review of Systems <Be Olguin MD - Last Filed: 07/05/23 08:28> Review of Systems Narrative: GENERAL: negative chills, fatigue, malaise, fever, sweats. HEENT: negative sinus pain, ear pain, sore throat RESPIRATORY: negative dyspnea, cough CARDIOVASCULAR: negative chest pain, palpitations GASTROINTESTINAL: negative nausea, vomiting, abdominal pain : negative dysuria, frequency, hematuria MUSCULOSKELETAL: negative muscle or bony pain SKIN: negative rash, skin lesions NEUROLOGIC: negative weakness, numbness, positive speech changes ROS Unobtainable: All systems reviewed & are unremarkable except as noted in HPI and below Hematologic/Lymphatic On Anticoagulants: Yes (Eliquis) Patient History <Be Olguin MD - Last Filed: 07/05/23 08:28> Social History household members: friend(s) Smoking Status: Former smoker alcohol intake: never Smoking Status: Former smoker Substance Use Type: does not use Exam <Be Olguin MD - Last Filed: 07/05/23 08:28> Narrative Exam Narrative: GENERAL: in no distress, not toxic not dyspneic HEAD: Normocephalic. EYES: Pupils equal round ENT: Mucous membranes moist. NECK: Trachea midline. CARDIOVASCULAR: Regular rate and rhythm RESPIRATORY: Clear to auscultation. Breath sounds equal bilaterally. No wheezes, rales, or rhonchi. GASTROINTESTINAL: Abdomen soft, non-tender EXTREMITIES: No gross deformities. BACK: No flank tenderness. NEURO: AOx4., patient does have start her speech, otherwise clear. No facial droop. 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 Able to do active straight leg raises. Negative pronator drift. Zdfewn-ug-jjma intact bilaterally SKIN: Warm and dry PSYCH: Not anxious, is cooperative Initial Vital Signs Initial Vital Signs: Vital Signs Temperature 98 F 06/29/23 11:18 Pulse Rate 70 06/29/23 11:18 Respiratory Rate 16 06/29/23 11:18 Blood Pressure 154/70 H 06/29/23 11:18 Pulse Oximetry 99 06/29/23 11:18 Oxygen Delivery Method Room Air 06/29/23 11:18 <Walker Eastman DO - Last Filed: 06/30/23 01:02> Initial Vital Signs Initial Vital Signs: Vital Signs Temperature 98 F 06/29/23 11:18 Pulse Rate 70 06/29/23 11:18 Respiratory Rate 16 06/29/23 11:18 Blood Pressure 154/70 H 06/29/23 11:18 Pulse Oximetry 99 06/29/23 11:18 Oxygen Delivery Method Room Air 06/29/23 11:18 Scores <Be Olguin MD - Last Filed: 07/05/23 08:28> NIH Stroke Scale Level of Conciousness: Alert, keenly responsive Ask month/age: Answers both questions correctly. Open/close eyes, close hand: Performs both tasks correctly Best gaze horizontal: Normal Visual steele: No visual loss Facial palsy: Normal symetrical movement Left arm drift: No drift for full 10 sec (Patient has slight week workforce development specialist on left) Right arm drift: No drift for full 10 sec Left leg drift: No drift for full 5 sec Right leg drift: No drift for full 5 sec Limb ataxia: Absent Sensory on face/arms/legs: Normal, no sensory loss Best language: Mild to moderate, slurs some words Dysarthria: Mild to mod,some slurring Extinction or inattention: No abnormality Total NIH Stroke scale score: 2 <Walker Eastman DO - Last Filed: 06/30/23 01:02> NIH Stroke Scale Total NIH Stroke scale score: 2 Course <Be Olguin MD - Last Filed: 07/05/23 08:28> Orders Ordered: Discontinued Medications Acetaminophen (Acetaminophen 325 Mg Tablet) 975 mg PO NOW ONE Stop: 06/29/23 17:34 Last Admin: 06/29/23 17:52 Dose: 975 mg Documented By: MS Sodium Chloride (Normal Saline 0.9%) 500 mls @ 1,000 mls/hr IV BOLUS ONE Stop: 06/29/23 12:47 Last Infusion: 06/29/23 13:26 Dose: Infused Documented By: Admin: 06/29/23 12:56 Dose: 1,000 mls/hr Documented By: MS Lorazepam (Lorazepam 2 Mg/Ml Inj) 0.5 mg IV NOW ONE Stop: 06/29/23 16:04 Last Admin: 06/29/23 16:12 Dose: 0.5 mg Documented By: RB Ondansetron HCl (Ondansetron 4 Mg/2 Ml Inj) 4 mg IV NOW PRN PRN Reason: Nausea And Vomiting Last Admin: 06/29/23 17:52 Dose: 4 mg Documented By: MS Ondansetron HCl (Ondansetron 4 Mg Odt) 4 mg SL NOW PRN PRN Reason: Nausea And Vomiting Vital Signs Vital signs: Vital Signs - 8 hr 06/29/23 17:26 06/29/23 17:45 06/29/23 18:00 Pulse Rate 64 71 71 Respiratory Rate 21 16 19 Blood Pressure 126/60 138/75 138/75 Pulse Oximetry 96 96 96 Oxygen Delivery Method Room Air Room Air Room Air 06/29/23 19:41 Pulse Rate 82 Respiratory Rate 16 Blood Pressure 129/67 Pulse Oximetry 97 Oxygen Delivery Method Room Air <Walker Eastman DO - Last Filed: 06/30/23 01:02> Orders Ordered: Discontinued Medications Acetaminophen (Acetaminophen 325 Mg Tablet) 975 mg PO NOW ONE Stop: 06/29/23 17:34 Last Admin: 06/29/23 17:52 Dose: 975 mg Documented By: Sodium Chloride (Normal Saline 0.9%) 500 mls @ 1,000 mls/hr IV BOLUS ONE Stop: 06/29/23 12:47 Last Infusion: 06/29/23 13:26 Dose: Infused Documented By: Admin: 06/29/23 12:56 Dose: 1,000 mls/hr Documented By: Lorazepam (Lorazepam 2 Mg/Ml Inj) 0.5 mg IV NOW ONE Stop: 06/29/23 16:04 Last Admin: 06/29/23 16:12 Dose: 0.5 mg Documented By: RB Ondansetron HCl (Ondansetron 4 Mg/2 Ml Inj) 4 mg IV NOW PRN PRN Reason: Nausea And Vomiting Last Admin: 06/29/23 17:52 Dose: 4 mg Documented By: MS Ondansetron HCl (Ondansetron 4 Mg Odt) 4 mg SL NOW PRN PRN Reason: Nausea And Vomiting Vital Signs Vital signs: Vital Signs - 8 hr 06/29/23 17:26 06/29/23 17:45 06/29/23 18:00 Pulse Rate 64 71 71 Respiratory Rate 21 16 19 Blood Pressure 126/60 138/75 138/75 Pulse Oximetry 96 96 96 Oxygen Delivery Method Room Air Room Air Room Air 06/29/23 19:41 Pulse Rate 82 Respiratory Rate 16 Blood Pressure 129/67 Pulse Oximetry 97 Oxygen Delivery Method Room Air MDM - Neuro Symptoms/Deficit <Be lOguin MD - Last Filed: 07/05/23 08:28> Lab Data 06/29/23 11:30 06/29/23 11:30 Labs: Lab Results 06/29/23 06/29/23 06/29/23 Range/Units 11:30 12:05 15:00 WBC 8.7 (4.5-11.0) X10^3/uL RBC 4.46 (4.0-5.2) X10^6/uL Hgb 13.7 (12.0-16.0) g/dL Hct 40.3 (36-46) % MCV 90.4 (80-100) fL MCH 30.7 (26-34) PG MCHC 34.0 (30-36) % RDW 13.7 (11.6-14.8) % Plt Count 290 (150-400) X10^3/uL Neut % (Auto) 62.0 (50-75) % Lymph % (Auto) 32.0 (25-40) % [place] % (Auto) 4.6 (3-14) % Eos % (Auto) 0.4 L (2-4) % Baso % (Auto) 1.0 (0-2) % Neut # (Auto) 5400 (5585-6637) /uL Lymph # (Auto) 2800 (9132-2770) /uL [place] # (Auto) 400 (0-900) /uL Eos # (Auto) 0 (0-450) /uL Baso # (Auto) 100 (0-100) /uL PT 13.4 H (10.1-12.7) SECONDS INR 1.2 (0.9-1.3) APTT 36 (26-36) SECONDS Sodium 140 (137-145) mmol/L Potassium 4.0 (3.4-5.1) mmol/L Chloride 105 (98-107) mmol/L Carbon Dioxide 25 (22-32) mmol/L BUN 17 (7-17) mg/dL Creatinine 0.59 (0.52-1.04) mg/dL Estimated GFR > 60 (>60) mL/min BUN/Creatinine Ratio 28.8 H (6-22) Glucose 114 H (70-100) mg/dL Calcium 9.3 (8.4-10.2) mg/dL Magnesium 2.0 (1.6-2.3) mg/dL Total Bilirubin 0.2 (0.2-1.3) mg/dL AST 33 (14-36) IU/L ALT 23 (<35) IU/L Alkaline Phosphatase 49 (38-126) U/L Total Creatine Kinase 72 (30-135) U/L Troponin I < 0.012 < 0.012 (0.01-0.034) ng/mL Total Protein 7.1 (6.3-8.2) g/dL Albumin 4.4 (3.5-5.0) g/dL Globulin 2.7 (1.7-4.1) g/dL Albumin/Globulin Ratio 1.6 (1.0-2.8) U Opiates 300ng/mL cut Negative (Negative) Ur Oxycodone Screen Negative (Negative) Urine Methadone Screen Negative (Negative) Ur Barbiturates Screen Positive H (Negative) U Tricyclic Antidepress Negative (Negative) Ur Phencyclidine Scrn Negative (Negative) Ur Amphetamines Screen Negative (Negative) U Methamphetamines Scrn Negative (Negative) Ur MDMA Scrn (Ecstasy) Negative (Negative) U Benzodiazepines Scrn Positive H (Negative) Urine Cocaine Screen Negative (Negative) U Marijuana (THC) Screen Negative (Negative) Point of Care Testing Glucose POC [address] scan - head: Radiologist's Impression: [address] [address] [address] Scan Report Signed Patient: Tiffanie Sanford MR#: [id number] : 1965 Acct:[id number] Age/Sex: 57 / F Date of Service: 06/29/23 Loc: ED Accession Number: [id number] Procedure: CT Stroke Ordering Provider: Be Olguin MD PROCEDURE: CT STROKE INDICATIONS: Positive BE-FAST, Stroke symptoms TECHNIQUE: Noncontrast 4.5 mm thick angled axial sections acquired from the foramen magnum to the vertex, with coronal reformats. For radiation dose reduction, the following was used: automated exposure control, adjustment of mA and/or kV according to patient size. COMPARISON: [facility], CT, CT STROKE, 04/30/2023, 21:09. FINDINGS: Image quality: Excellent. CSF spaces: Basal cisterns are patent. No extra-axial fluid collections. Ventricles are normal in size and shape. Brain: No midline shift. No intracranial masses or hemorrhage. Felipe-white matter interface is normal. Skull and face: Calvarium and visualized facial bones are intact, without suspicious lesions. Sinuses: Visualized sinuses and mastoids are clear. IMPRESSION: No acute intracranial abnormality. Comment: Findings were discussed with Dr. Olguin on 06/29/2023 at 1203 hours This study fulfills neurological imaging criteria for inclusion or exclusion of acute stroke therapies based on available published neurological imaging guidelines. Dictated by: Galileo Zarate M.D. on 06/29/2023 at 12:02 Approved by: Galileo Zarate M.D. on 06/29/2023 at 12:04 Chest x-ray: Radiologist's Impression: [address] [address] XRay Report Signed Patient: Tiffanie Sanford MR#: [id number] : 1965 Acct:[id number] Age/Sex: 57 / F Date of Service: 06/29/23 Loc: ED Accession Number: [id number] Procedure: XR chest 1V Ordering Provider: Be Olguin MD PROCEDURE: XR CHEST 1V INDICATIONS: Possible stroke TECHNIQUE: One view of the chest was acquired. COMPARISON: [facility], , XR CHEST 1V, 04/30/2023, 21:07. [facility], , CHEST 1 VIEW, 06/06/2017, 14:02. FINDINGS: Surgical changes and devices: None. Lungs and pleura: Lungs are clear. No pleural effusions or pneumothorax. Mediastinum: Mediastinal contours appear normal. Heart size is normal. Bones and chest wall: No suspicious bony lesions. Overlying soft tissues appear unremarkable. IMPRESSION: Portable chest within normal limits for age. Dictated by: James Kline M.D. on 06/29/2023 at 12:15 Approved by: James Kline M.D. on 06/29/2023 at 12:16 MRI brain: Radiologist's Impression: [address] [address] Magnetic Resonance Report Signed Patient: Tiffanie Sanford MR#: [id number] : 1965 Acct:[id number] Age/Sex: 57 / F Date of Service: 06/29/23 Loc: ED Accession Number: [id number] Procedure: MR head/brain wo con Ordering Provider: Be Olguin MD PROCEDURE: MR HEAD/BRAIN WO CON INDICATIONS: Dysarthria TECHNIQUE: Noncontrast axial T1 spin echo, axial T2 fast spin echo, sagittal and axial FLAIR, coronal T2 fast spin echo, axial gradient echo, axial diffusion and ADC through the brain. COMPARISON: [facility], CT, CT ANGIO HEAD AND NECK, 06/29/2023, 11:51. [facility], CT, CT STROKE, 06/29/2023, 11:38. [facility], MR, MR HEAD/BRAIN WO CON, 05/01/2023, 8:53. FINDINGS: Image quality: Diagnostic, with note made of motion artifact. CSF Spaces: Basal cisterns are patent. No extra-axial fluid collections. Ventricles are normal in size and shape. Brain: No intracranial masses or hemorrhage. Felipe/white matter interface is normal. Brainstem appears normal. Diffusion-weighted images demonstrate no acute ischemic insult. No chronic ischemic insults. Normal intravascular flow voids are present. Skull and face: Calvarium has normal marrow signal. Orbits appear normal. Sinuses: Sinuses and mastoids are clear. IMPRESSION: No findings of acute or subacute infarction can be seen. Dictated by: Mitch Washington M.D. on 06/29/2023 at 16:02 Approved by: Mitch Washington M.D. on 06/29/2023 at 16:03 [facility] Narrative Medical decision making narrative: Patient here for expressive aphasia symptoms for the past 3 days. She states she can think of what she wants to say but it is hard for to say it. She does have stuttering at this point today. Denies any new weakness numbness tingling or weakness. Patient has had strokes in the past. Admitted here in April for stroke. Patient is on Eliquis for protein S deficiency. Patient is on daily baby aspirin as well. Patient outside window for endovascular studies or tPA. 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 Pertinent findings: WBC 8.7 hemoglobin 13.7 hematocrit 40 PT 13.4 INR 1.2 PTT 36 sodium 140 potassium 4 bicarb 25 BUN 17 creatinine 0.59 GFR greater than 60 Independently reviewed EKG normal sinus rhythm rate [address] elevation depression EKG at 2:40 p.m.. Normal sinus rhythm rate [address] elevation or depression Imaging studies independently reviewed: CT head CT angiogram head and neck no acute finding, radiologist called for report 12:03 p.m. chest x-ray no acute finding MRI brain no acute finding Consultations: Spoke with hospitalist, who would like to see patient in the emergency department for evaluation, dr tano Vu, Social work has tried to interact with patient but patient states unable to right now 2:49 p.m. Treatments: Normal saline Re-evaluations: Updated patient results and MRI is ordered. Discussion: Diagnosis: 6:00 p.m. Clau: Sign out to Dr Eastman MRI results are complete. Hospitalist has been contacted to see and evaluate patient for admission. Social work has been seeing patient as well. <Walker Eastman, DO - Last Filed: 06/30/23 01:02> Lab Data Labs: Lab Results 06/29/23 06/29/23 06/29/23 Range/Units 11:30 12:05 15:00 WBC 8.7 (4.5-11.0) X10^3/uL RBC 4.46 (4.0-5.2) X10^6/uL Hgb 13.7 (12.0-16.0) g/dL Hct 40.3 (36-46) % MCV 90.4 (80-100) fL MCH 30.7 (26-34) PG MCHC 34.0 (30-36) % RDW 13.7 (11.6-14.8) % Plt Count 290 (150-400) X10^3/uL Neut % (Auto) 62.0 (50-75) % Lymph % (Auto) 32.0 (25-40) % [place] % (Auto) 4.6 (3-14) % Eos % (Auto) 0.4 L (2-4) % Baso % (Auto) 1.0 (0-2) % Neut # (Auto) 5400 (1573-0520) /uL Lymph # (Auto) 2800 (5742-0559) /uL [place] # (Auto) 400 (0-900) /uL Eos # (Auto) 0 (0-450) /uL Baso # (Auto) 100 (0-100) /uL PT 13.4 H (10.1-12.7) SECONDS INR 1.2 (0.9-1.3) APTT 36 (26-36) SECONDS Sodium 140 (137-145) mmol/L Potassium 4.0 (3.4-5.1) mmol/L Chloride 105 (98-107) mmol/L Carbon Dioxide 25 (22-32) mmol/L BUN 17 (7-17) mg/dL Creatinine 0.59 (0.52-1.04) mg/dL Estimated GFR > 60 (>60) mL/min BUN/Creatinine Ratio 28.8 H (6-22) Glucose 114 H (70-100) mg/dL Calcium 9.3 (8.4-10.2) mg/dL Magnesium 2.0 (1.6-2.3) mg/dL Total Bilirubin 0.2 (0.2-1.3) mg/dL AST 33 (14-36) IU/L ALT 23 (<35) IU/L Alkaline Phosphatase 49 (38-126) U/L Total Creatine Kinase 72 (30-135) U/L Troponin I < 0.012 < 0.012 (0.01-0.034) ng/mL Total Protein 7.1 (6.3-8.2) g/dL Albumin 4.4 (3.5-5.0) g/dL Globulin 2.7 (1.7-4.1) g/dL Albumin/Globulin Ratio 1.6 (1.0-2.8) U Opiates 300ng/mL cut Negative (Negative) Ur Oxycodone Screen Negative (Negative) Urine Methadone Screen Negative (Negative) Ur Barbiturates Screen Positive H (Negative) U Tricyclic Antidepress Negative (Negative) Ur Phencyclidine Scrn Negative (Negative) Ur Amphetamines Screen Negative (Negative) U Methamphetamines Scrn Negative (Negative) Ur MDMA Scrn (Ecstasy) Negative (Negative) U Benzodiazepines Scrn Positive H (Negative) Urine Cocaine Screen Negative (Negative) U Marijuana (THC) Screen Negative (Negative) Point of Care Testing Glucose POC 121 MDM Narrative Medical decision making narrative: Patient here for expressive aphasia symptoms for the past 3 days. She states she can think of what she wants to say but it is hard for to say it. She does have stuttering at this point today. Denies any new weakness numbness tingling or weakness. Patient has had strokes in the past. Admitted here in April for stroke. Patient is on Eliquis for protein S deficiency. Patient is on daily baby aspirin as well. Patient outside window for endovascular studies or tPA. 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 Pertinent findings: WBC 8.7 hemoglobin 13.7 hematocrit 40 PT 13.4 INR 1.2 PTT 36 sodium 140 potassium 4 bicarb 25 BUN 17 creatinine 0.59 GFR greater than 60 Independently reviewed EKG normal sinus rhythm rate [address] elevation depression EKG at 2:40 p.m.. Normal sinus rhythm rate [address] elevation or depression Imaging studies independently reviewed: CT head CT angiogram head and neck no acute finding, radiologist called for report 12:03 p.m. chest x-ray no acute finding MRI brain no acute finding Consultations: Spoke with hospitalist, who would like to see patient in the emergency department for evaluation, dr tano Vu, Social work has tried to interact with patient but patient states unable to right now 2:49 p.m. Treatments: Normal saline Re-evaluations: Updated patient results and MRI is ordered. 6:00 p.m. Clau: Sign out to Dr Eastman MRI results are complete. Hospitalist has been contacted to see and evaluate patient for admission. Social work has been seeing patient as well. [1800] (Jaren) Patient received in sign out from [Clau]. I have reviewed the clinical course and performed an independent history and physical exam. Awaiting hospitalist visit Please see Dr. Rollins's note. Patient has no evidence of stroke, there has been consultation was stroke neurologist suggesting outpatient evaluation is appropriate. No further workup or need for admission noted. Discharge Plan Departure Patient Disposition: Home Clinical Impression: Weakness Activity Restrictions/Additional Instructions: You came in to the Emergency Department with feeling weak. We did multiple tests which showed you had no stroke. We discussed your medical care with the stroke specialist at [facility]. They agreed that there was no stroke on your tests. They did recommend you follow up closely with your PCP. Please try to follow up within 24-48 hours. They recommended to follow up with an EEG to look for possible seizures. They also recommend follow up with your oncologist/nuclear powerplant mechanic helper to make sure this is not your Protein C/S deficiency causing issues. If you have worsening symptoms please come back to the ED to be evaluated. Prescriptions: No Action pantoprazole 40 MG tablet,delayed release (DR/EC) 20 mg PO BID Qty: 0 verapamil 120 mg capsule,ext rel. pellets 24 hr 120 mg PO DAILY Qty: 30 0RF apixaban 5 mg tablet 5 mg PO BID Qty: 60 0RF hydroxyzine HCl 25 mg/mL Solution 25 mg metoprolol succinate 50 mg tablet extended release 24 hr 50 mg PO BID lisinopril 10 mg Tablet 10 mg PO BID zolpidem [Ambien] 5 mg Tablet 5 mg Repatha Syringe 140 mg/mL Syringe 140 mg SUBCUT 12-24XD [id number]-[id number] [Fioricet] 50-300-40 mg capsule 1 cap PO Q4H PRN (Reason: Pain (Scale Score 4-6)) Referrals: Raz Bullock MD [Primary Care Provider] - Stand Alone Forms: Patient Portal/API
[2023-06-29 12:25] LABS: UR Morphine/Opiate cutoff 300 Negative (Negative); Ur Creatinine Normal (Normal); Ur Specific Gravity Normal (Normal); Urine Amphetamines Negative (Negative); Urine Barbiturates Positive (Negative); Urine Benzodiazepines Positive (Negative); Urine Cocaine Negative (Negative); Urine MDMA Negative (Negative); Urine Methadone Negative (Negative); Urine Methamphetamines Negative (Negative); Urine Oxycodone Negative (Negative); Urine Phencyclidine Negative (Negative); Urine Tetrahydrocannabinol Negative (Negative); Urine Tricyclic Antidepressant Negative (Negative); Urine pH Normal (Normal)
[2023-06-29] MEDS: SODIUM CHLORIDE 0.9% 500 ML 1000 ML IV (12:56)
--- NOTE | 2023-06-29 13:34 | DI.MRI.S_ITS ---
PROCEDURE: MR HEAD/BRAIN WO CON INDICATIONS: Dysarthria TECHNIQUE: Noncontrast axial T1 spin echo, axial T2 fast spin echo, sagittal and axial FLAIR, coronal T2 fast spin echo, axial gradient echo, axial diffusion and ADC through the brain. COMPARISON: [facility], CT, CT ANGIO HEAD AND NECK, 06/29/2023, 11:51. [facility], CT, CT STROKE, 06/29/2023, 11:38. [facility], MR, MR HEAD/BRAIN WO CON, 05/01/2023, 8:53. FINDINGS: Image quality: Diagnostic, with note made of motion artifact. CSF Spaces: Basal cisterns are patent. No extra-axial fluid collections. Ventricles are normal in size and shape. Brain: No intracranial masses or hemorrhage. Felipe/white matter interface is normal. Brainstem appears normal. Diffusion-weighted images demonstrate no acute ischemic insult. No chronic ischemic insults. Normal intravascular flow voids are present. Skull and face: Calvarium has normal marrow signal. Orbits appear normal. Sinuses: Sinuses and mastoids are clear. IMPRESSION: No findings of acute or subacute infarction can be seen. Dictated by: Mitch Washington M.D. on 06/29/2023 at 16:02 Approved by: Mitch Washington M.D. on 06/29/2023 at 16:03
--- NOTE | 2023-06-29 14:41 | PC.NURSE ---
Pt c/o chest pain. EKG called. Dr Olguin made aware. BP 126/58 and HR 60. No new orders at this time.
[2023-06-29 15:37] LABS: Troponin I < 0.012 ng/mL (0.01-0.034)
[2023-06-29] MEDS: LORazepam 2 MG/ML INJ 0.5 MG IV (16:12)
--- NOTE | 2023-06-29 16:29 | PC.NURSE ---
water and fire technician took patient to MRI.
--- NOTE | 2023-06-29 17:51 | CM.SWNOTE ---
SOCIAL WORK NOTE 13:00 SW asked to see pt to assess any recent stressors or psychosocial needs pt may wish to address. at that time pt noted hard time putting thoughts to works, and declines to speak with SW. 17:30 SW attempted to speak with pt again. Pt persents as calm and cooperative. She does frequently stutter and takes long pauses prior to answering questions. Pt indicates she came to the ED today due to trouble speaking. She identifies having a significant medical history and these symptoms happen off and on since i had cancer, five years ago. Pt notes I'm sick enough i have an [employer]CUS [employer]ER. she details that she works with KEO King with [facility], he's my advocate. When asked what role Wilman plays in her care she states makes sure i get all the care i need. any medical issues. will come here tomorrow if im still here. she reports that she was supposed to have a speech assessment in April following a similar incident but by the time she was able to get an appointment her symptoms had abated and she did not have the assessment. This evening pt denies any recent stressors or psychosocial concerns. pt states daily life is great, im thinking of getting a puppy. she reports she lives with a friend who is an RN. she has three children and three adoptive children and summarizes I have great supports. Assessment: Pt is calm, cooperative, and denies all SW needs at this time. she denies any recent marked stressors and reports having adequate supports including family and [facility] CIRCUS LAB[employer]ER Wilman Richardson. Plan: Above information provided to MD. No SW needs identified at this time. KEO Lopez, APARTMENT ASSISTANT MANAGER
[2023-06-29] MEDS: ACETAMINOPHEN 325 MG TABLET 975 MG PO (17:52)
[2023-06-29] MEDS: ONDANSETRON 4 MG/2 ML INJ IV (17:52)
--- NOTE | 2023-06-29 20:50 | P.CONS_ITS ---
History of Present Illness Consult details Date Patient Seen: 06/29/23 Time Patient Seen: 18:00 Chief complaint: couple strokes/on blood thinners/heart attack Narrative: Ms. Sanford is a 57W with PMH migraines, Protein C/S deficiency, history of PE/DVT who presents to the hospital with weakness and difficulty with speech. She notes she is not sure how long her symptoms have been occurring for, initially states possibly since Tuesday or Tuesday, bedside friend says possible since Tuesday. She has had symptoms like this before. She says she felt she had brain fogginess, couldn't think well. She felt weak everywhere including her bilateral upper and lower extremities, but worse on the left. She had difficulty saying words. She had a very similar presentation in April with workup being done showing no stroke on MRI at that time. Her symptoms were not consistent and waxed and waned at that time. She was seen by the ED physician who ordered CT head and MRI brain which showed no stroke. Her NIH was initially elevated due to difficulty speaking and slight left side weakness. When I speak to her, her speech is halting, but she is able to speak clearly, she has no facial droop. On exam I currently find to objective weakness on her left side. I did speak with [facility] stroke neurologist Dr. Fraire who says this is not consistent with stroke and recommends outpatient EEG to evaluate for possible seizure and to also follow up with her lead man over all [employer] in [employer] about Protein C/S treatment. When I recommend this to her she get angry and curses. Her speech during this is not halting and becomes more clear. I ask how I can help her since she is visibly angry but she offers no suggestion. Meds Home Medications and Allergies Home Medications Medication Instructions Recorded Confirmed Type pantoprazole 40 mg tablet,delayed 20 mg PO BID ##0 07/29/17 06/29/23 History release phrkljnbgi-roqsobggazwgi-wawtgbui 1 cap PO Q4H PRN Pain (Scale Score 03/31/18 06/29/23 History 50 mg-300 mg-40 mg capsule 4-6) (Fioricet) apixaban 5 mg tablet 5 mg PO BID #60 tabs 05/02/23 06/29/23 Rx verapamil 120 mg 24 hr 120 mg PO DAILY #30 caps 05/02/23 06/29/23 Rx capsule,extended release evolocumab 140 mg/mL subcutaneous 140 mg SUBCUT 12-24XD 06/29/23 06/29/23 History syringe (Repatha Syringe) hydroxyzine HCl 25 mg/mL 25 mg 06/29/23 History intramuscular solution lisinopril 10 mg tablet 10 mg PO BID 06/29/23 06/29/23 History metoprolol succinate 50 mg 50 mg PO BID 06/29/23 06/29/23 History tablet,extended release 24 hr zolpidem 5 mg tablet (Ambien) 5 mg 06/29/23 History Allergies Allergy/AdvReac Type Severity Reaction Status Date / Time azithromycin [AZITHROMYCIN] Allergy Unknown Verified 06/29/23 12:58 Sulfa (Sulfonamide Allergy Unknown RESPIRATORY Verified 06/29/23 12:58 Antibiotics) DISTRESS [SULFA (SULFONAMIDE ANTIBIOTICS)] sumatriptan [From IMITREX] Allergy Unknown RESP Verified 06/29/23 12:58 DISTRESS Exam Vital Signs (past 8 hours): - 06/29/23 13:00 06/29/23 13:15 06/29/23 13:30 Pulse Rate 56 L 64 Respiratory Rate 21 21 Blood Pressure 119/58 L 144/64 H 141/64 H Pulse Oximetry 97 100 Oxygen Delivery Method Room Air Room Air 06/29/23 13:45 06/29/23 14:00 06/29/23 14:15 Pulse Rate 60 62 60 Respiratory Rate 22 26 H 21 Blood Pressure 126/56 L 126/58 L 122/55 L Pulse Oximetry 99 98 99 Oxygen Delivery Method Room Air 06/29/23 14:30 06/29/23 15:15 06/29/23 15:30 Pulse Rate 59 L 55 L 56 L Respiratory Rate 20 23 21 Blood Pressure 126/58 L 124/59 L 119/56 L Pulse Oximetry 97 97 98 Oxygen Delivery Method Room Air Room Air Room Air 06/29/23 15:45 06/29/23 16:00 06/29/23 16:15 Pulse Rate 61 58 L 62 Respiratory Rate 20 21 22 Blood Pressure 136/64 131/61 126/60 Pulse Oximetry 97 98 98 Oxygen Delivery Method Room Air Room Air Room Air 06/29/23 17:26 06/29/23 17:45 06/29/23 18:00 Pulse Rate 64 71 71 Respiratory Rate 21 16 19 Blood Pressure 126/60 138/75 138/75 Pulse Oximetry 96 96 96 Oxygen Delivery Method Room Air Room Air Room Air 06/29/23 19:41 Pulse Rate 82 Respiratory Rate 16 Blood Pressure 129/67 Pulse Oximetry 97 Oxygen Delivery Method Room Air Oxygen Delivery Method Room Air Narrative Exam Narrative: NEURO: no facial droop, upper and lower extremity strength normal 5/5 Objective Labs 06/29/23 11:30 06/29/23 11:30 Labs: Laboratory Results - last 24 hr 06/29/23 06/29/23 06/29/23 11:30 12:05 15:00 WBC 8.7 RBC 4.46 Hgb 13.7 Hct 40.3 MCV 90.4 MCH 30.7 MCHC 34.0 RDW 13.7 Plt Count 290 Neut % (Auto) 62.0 Lymph % (Auto) 32.0 [place] % (Auto) 4.6 Eos % (Auto) 0.4 L Baso % (Auto) 1.0 Neut # (Auto) 5400 Lymph # (Auto) 2800 [place] # (Auto) 400 Eos # (Auto) 0 Baso # (Auto) 100 PT 13.4 H INR 1.2 APTT 36 Sodium 140 Potassium 4.0 Chloride 105 Carbon Dioxide 25 BUN 17 Creatinine 0.59 Estimated GFR > 60 BUN/Creatinine Ratio 28.8 H Glucose 114 H Calcium 9.3 Magnesium 2.0 Total Bilirubin 0.2 AST 33 ALT 23 Alkaline Phosphatase 49 Total Creatine Kinase 72 Troponin I < 0.012 < 0.012 Total Protein 7.1 Albumin 4.4 Globulin 2.7 Albumin/Globulin Ratio 1.6 U Opiates 300ng/mL cut Negative Ur Oxycodone Screen Negative Urine Methadone Screen Negative Ur Barbiturates Screen Positive H U Tricyclic Antidepress Negative Ur Phencyclidine Scrn Negative Ur Amphetamines Screen Negative U Methamphetamines Scrn Negative Ur MDMA Scrn (Ecstasy) Negative U Benzodiazepines Scrn Positive H Urine Cocaine Screen Negative U Marijuana (THC) Screen Negative [facility] Social History household members: friend(s) Tobacco & Substance Use Smoking Status: Former smoker alcohol intake: never Assessment & Plan Assessment & Plan narrative: 1. Speech difficulty and weakness - Workup in the ED was negative for stroke. She had a similar presentation two months ago which also showed no stroke. She has had intermittent headaches, but no headache now, so suspect migraine is possible but less likeyl. Unfortunately she has severe allergy to sumatriptan. Possible seizure also is considered. We do not have EEG capability here. I did speak with stroke neurologist Dr. Fraire who agrees stroke is very unlikely and that she is safe to discharge but she will need close follow up with her PCP, consider outpatient EEG, and follow up with her lead man over [employer] in [employer] for her Protein C/S deficiency.
== END 2023-06-29 19:45 | disposition home or self-care (01) ==
PROVIDERS: Emergency Medicine; Emergency Provider Emergency Medicine; PCP Internal Medicine
DX: R53.1 Weakness (principal); R47.01 Aphasia; R47.81 Slurred speech; R29.702 NIHSS score 2; Z79.01 Long term (current) use of anticoagulants; Z79.899 Other long term (current) drug therapy; Z86.73 Personal history of transient ischemic attack (TIA), and cerebral infarction without residual deficits
CPT/HCPCS: 36415; 70450; 70496; 70498; 70551; 71045; 80053; 80305; 82550; 82962; 83735; 84484; 85025; 85610; 85730; 93005; 93010; 96374; 96375; 99285; J2060; J2405; Q9967

== ENCOUNTER 2023-10-25 11:08 | Emergency (ER) | payer OTHER, MEDICAID, SELFPAY ==
[2023-05-01 01:48] VITALS: BMI 25.5
[2023-10-25 11:44] VITALS: BP 158/68; PULSE 70; RESP 20; TEMP 36.6; O2SAT 98; BMI 22.1
--- NOTE | 2023-10-25 15:09 | PC.NURSE ---
pt called earlier and stated she was leaving because they have not gotten her for CT; time frame about an hour ago; put in the comment box that pt VDC; pt now calling saying you guys haven't even done my labs. I told pt she stated she was leaving so we thought she had left. pt stated I was going to leave not that I was actually leaving.
[2023-10-25 15:42] LABS: Add Manual Diff / Slide Review NO; Basophils Absolute Auto 100 /uL (0-100); Basophils Percent Auto 0.9 % (0-2); Eosinophils Absolute Auto 0 /uL (0-450); Eosinophils Percent Auto 0.4 % (2-4); Hematocrit 44.7 % (36-46); Hemoglobin 15.1 g/dL (12.0-16.0); Lymphocytes Absolute Auto 4000 /uL (1100-4500); Lymphocytes Percent Auto 36.6 % (25-40); Mean Corpuscular HGB Conc 33.9 % (30-36); Mean Corpuscular Hemoglobin 30.6 PG (26-34); Mean Corpuscular Volume 90.5 fL (80-100); Monocytes Absolute Auto 500 /uL (0-900); Monocytes Percent Auto 4.4 % (3-14); Neutrophils Absolute Auto 6300 /uL (1500-7000); Neutrophils Percent Auto 57.7 % (50-75); Platelet Count 271 X10^3/uL (150-400); Red Blood Cell Count 4.94 X10^6/uL (4.0-5.2); Red Cell Distribution Width 14.2 % (11.6-14.8); White Blood Cell Count 10.8 X10^3/uL (4.5-11.0)
[2023-10-25 15:48] LABS: Prothrombin Time 10.9 SECONDS (9.4-12.5)
[2023-10-25 16:01] LABS: Alanine Aminotransferase 11 IU/L (<35); Albumin 4.4 g/dL (3.5-5.0); Albumin Globulin Ratio 1.3 (1.0-2.8); Alkaline Phosphatase 61 U/L (38-126); Aspartate Aminotransferase 20 IU/L (14-36); BUN Creatinine Ratio 24.5 (6-22); Bilirubin Total 0.5 mg/dL (0.2-1.3); Blood Urea Nitrogen 12 mg/dL (7-17); Calcium 9.2 mg/dL (8.4-10.2); Carbon Dioxide 24 mmol/L (22-32); Chloride 104 mmol/L (98-107); Estimated Glomerular Filt Rate > 60 mL/min (>60); Globulin 3.4 g/dL (1.7-4.1); Glucose 93 mg/dL (70-100); HEMOLYSIS < 15 (0-50); Potassium 4.1 mmol/L (3.4-5.1); Sodium 140 mmol/L (137-145); Total Protein 7.8 g/dL (6.3-8.2)
--- NOTE | 2023-10-25 16:05 | DI.CT.S_ITS ---
PROCEDURE: CT CHEST ABD PEL W CON INDICATIONS: fall, urinating blood and flank pain TECHNIQUE: After the administration of intravenous contrast, 5 mm thick sections acquired from the lung apices to the symphysis. 2.5 mm thick coronal and sagittal reformats were acquired. Additional 7 mm thick coronal maximum intensity projection (MIP) reformats acquired through the lungs. Optional 10-minute delayed imaging may be performed from the kidneys to the bladder. For radiation dose reduction, the following was used: automated exposure control, adjustment of mA and/or kV according to patient size. COMPARISON: None. FINDINGS: Image quality: Diagnostic. CHEST: Lower Neck: No enlarged lymph nodes. Thyroid: No thyroid nodules which require sonographic evaluation. Axillae: No enlarged lymph nodes. Chest Wall: No subcutaneous gas. Lungs and Pleura: No pulmonary contusions or lacerations. No acute airspace opacities. No pneumothorax or hemothorax. Mediastinum: No mediastinal hematomas. Heart size is normal. No pericardial effusion. Thoracic aorta and pulmonary arteries demonstrate normal size and enhancement. No mediastinal or hilar adenopathy. Esophagus is normal in caliber. No hiatal hernia. ABDOMEN: Liver: No lacerations. Diffuse fatty infiltration of the liver. Gallbladder: No radiopaque gallstones or wall thickening. Biliary ducts: No biliary dilation. Pancreas: Homogenous enhancement. Spleen: Homogenous enhancement without laceration or hematoma. Adrenal Glands: Symmetric enhancement. Kidneys and Ureters: Symmetric enhancement. No hydronephrosis. No solid mass. No complex renal cystic lesion which requires follow up. Stomach and Bowel: Normal colonic caliber, without significant wall thickening. Peritoneum: No abnormal intraperitoneal fluid. No free air. Ventral Wall: No hernia. Abdominal Nodes: No retroperitoneal or mesenteric adenopathy by size criteria. Vessels: Aorta and inferior vena cava are normal in size. PELVIS: Pelvic Organs: Unremarkable. Bladder: Normal thickness. Pelvic Nodes: No enlarged lymph nodes. Miscellaneous: No inguinal hernias are seen. Bones: Pelvic ring and hip joints appear intact. No displaced rib fractures. Spine degenerative disc disease and facet arthropathy. IMPRESSION: No evidence of traumatic injury to the chest, abdomen or pelvis. Dictated by: Katya Coley MD, PhD on 10/25/2023 at 16:25 Approved by: Katya Coley MD, PhD on 10/25/2023 at 16:40
--- NOTE | 2023-10-25 18:08 | ED.FALL ---
HPI - Fall <Yamini Smith PA-C - Last Filed: 10/25/23 18:24> General Chief Complaint: Fall Stated Complaint: FALL T-4/ Urinatin Blood since Time Seen by Provider: 10/25/23 17:34 Source: patient Mode of arrival: Ambulatory History of Present Illness HPI Narrative: 57-year-old female with past medical history clotting disorder presents to the ED status post a ground level fall sustained 4 days prior to arrival. Patient sustained a mechanical fall, slipping on a manhole cover causing her to fall to the ground. No head strike. No loss of consciousness. Patient is on Eliquis for a blood clotting disorder which she thinks is either a protein C or protein S. patient endorses pain in the right lower ribs, left hip. Patient has a small abrasion to the left elbow. No chest pain, shortness of breath. Related Data Home Medications Medication Instructions Recorded Confirmed pantoprazole 40 mg tablet,delayed 20 mg PO BID ##0 07/29/17 06/29/23 release nwythjaonq-vtccijvgymsmj-lokbltla 1 cap PO Q4H PRN Pain (Scale Score 03/31/18 06/29/23 50 mg-300 mg-40 mg capsule 4-6) (Fioricet) evolocumab 140 mg/mL subcutaneous 140 mg SUBCUT 12-24XD 06/29/23 06/29/23 syringe (Repatha Syringe) hydroxyzine HCl 25 mg/mL 25 mg 06/29/23 intramuscular solution lisinopril 10 mg tablet 10 mg PO BID 06/29/23 06/29/23 metoprolol succinate 50 mg 50 mg PO BID 06/29/23 06/29/23 tablet,extended release 24 hr zolpidem 5 mg tablet (Ambien) 5 mg 06/29/23 Previous Rx's Medication Instructions Recorded apixaban 5 mg tablet 5 mg PO BID #60 tabs 05/02/23 verapamil 120 mg 24 hr 120 mg PO DAILY #30 caps 05/02/23 capsule,extended release Allergies Allergy/AdvReac Type Severity Reaction Status Date / Time azithromycin [AZITHROMYCIN] Allergy Unknown Verified 10/25/23 11:52 Sulfa (Sulfonamide Allergy Unknown RESPIRATORY Verified 10/25/23 11:52 Antibiotics) DISTRESS [SULFA (SULFONAMIDE ANTIBIOTICS)] sumatriptan [From IMITREX] Allergy Unknown RESP Verified 10/25/23 11:52 DISTRESS Review of Systems <Yamini Smith PA-C - Last Filed: 10/25/23 18:24> Constitutional Constitutional: Denies chills, Denies fatigue, Denies fever(s), Denies frequent falls, Denies lethargy and Denies weakness Eyes Eyes: Denies change in vision, Denies eye discharge, Denies irritation and Denies loss of vision ENT Ears, Nose, Mouth, and Throat: Denies change in voice, Denies dizziness, Denies neck pain, Denies sore throat and Denies throat swelling Cardiovascular Cardiovascular: Denies chest pain, Denies irregular heart rhythm, Denies lightheadedness, Denies palpitations, Denies dyspnea, Denies dyspnea on exertion and Denies orthopnea Respiratory Respiratory: Denies cough, Denies dyspnea, Denies dyspnea on exertion and Denies wheezing Gastrointestinal Gastrointestinal: Denies abdominal pain, Denies change in bowel habits, Denies diarrhea, Denies nausea and Denies vomiting Musculoskeletal Musculoskeletal: Denies neck pain and Denies numbness Comments: Right lower rib pain, left hip pain Integumentary/Breasts Skin/Breast: Denies pruritus, Denies erythema, Denies rash and Denies wounds Neurologic Neurologic: Denies behavioral changes, Denies confusion, Denies dizziness, Denies frequent falls, Denies loss of vision, Denies numbness and Denies weakness Psychiatric Psychiatric: Denies anxiety, Denies behavioral changes, Denies confusion, Denies depression, Denies homicidal ideation and Denies suicidal ideation Endocrine Endocrine: Denies fatigue, Denies flushing and Denies palpitations Hematologic/Lymphatic Hematologic/Lymphatic: Denies easy bruising Allergic/Immunologic Allergic/Immunologic: Denies urticaria, Denies throat swelling and Denies wheezing Patient History <Yamini Smith PA-C - Last Filed: 10/25/23 18:24> Social History household members: friend(s) Smoking Status: Former smoker alcohol intake: never Smoking Status: Former smoker alcohol intake frequency: 0-2 drinks per day Substance Use Type: does not use Exam <Yamini Smith PA-C - Last Filed: 10/25/23 18:24> Narrative Exam Narrative: Const General:?cooperative, healthy appearing and comfortable HENMT Head:?normal to inspection Ears:?hearing grossly normal bilaterally Nose:?external nose normal Face and sinus:?normal facial exam and sinuses nontender Mouth:?oral mucosae normal Throat:?posterior oropharynx normal Eyes General:?appearance normal, both eyes and all related structures Neck Neck:?normal visual inspection and no lymphadenopathy noted Resp Effort & Inspection:?normal respiratory effort Auscultation:?clear to auscultation bilaterally Cardio Rate:?regular rate Rhythm:?regular rhythm Musculoskeletal Right lower ribs tender to palpation. No bruising, rashes. Neuro General:?patient alert, patient awake and patient oriented x3 Initial Vital Signs Initial Vital Signs: Vital Signs Temperature 97.9 F 10/25/23 11:44 Pulse Rate 70 10/25/23 11:44 Respiratory Rate 20 10/25/23 11:44 Blood Pressure 158/68 H 10/25/23 11:44 Pulse Oximetry 98 10/25/23 11:44 Oxygen Delivery Method Room Air 10/25/23 11:44 <DO Jeremiah Barraza Last Filed: 10/31/23 07:13> Initial Vital Signs Initial Vital Signs: Vital Signs Temperature 97.9 F 10/25/23 11:44 Pulse Rate 70 10/25/23 11:44 Respiratory Rate 20 10/25/23 11:44 Blood Pressure 158/68 H 10/25/23 11:44 Pulse Oximetry 98 10/25/23 11:44 Oxygen Delivery Method Room Air 10/25/23 11:44 Course <Yamini Smith PA-C - Last Filed: 10/25/23 18:24> Orders Ordered: ED Orders 10/25/23 15:25 Complete Blood Count AUTO DIFF Stat Comprehensive Metabolic Panel Stat Prothrombin Time INR Stat 10/25/23 16:05 CT chest abd pel w con Stat Vital Signs Vital signs: Vital Signs - 8 hr 10/25/23 11:44 Temperature 97.9 F Pulse Rate 70 Respiratory Rate 20 Blood Pressure 158/68 H Pulse Oximetry 98 Oxygen Delivery Method Room Air <DO Jeremiah Barraza Last Filed: 10/31/23 07:13> Orders Ordered: ED Orders 10/25/23 15:25 Complete Blood Count AUTO DIFF Stat Comprehensive Metabolic Panel Stat Prothrombin Time INR Stat 10/25/23 16:05 CT chest abd pel w con Stat Vital Signs Vital signs: Vital Signs - 8 hr 10/25/23 11:44 Temperature 97.9 F Pulse Rate 70 Respiratory Rate 20 Blood Pressure 158/68 H Pulse Oximetry 98 Oxygen Delivery Method Room Air MDM - Fall <Yamini Smith PA-C - Last Filed: 10/25/23 18:24> Lab Data 10/25/23 15:25 10/25/23 15:25 Labs: Lab Results 10/25/23 Range/Units 15:25 WBC 10.8 (4.5-11.0) X10^3/uL RBC 4.94 (4.0-5.2) X10^6/uL Hgb 15.1 (12.0-16.0) g/dL Hct 44.7 (36-46) % MCV 90.5 (80-100) fL MCH 30.6 (26-34) PG MCHC 33.9 (30-36) % RDW 14.2 (11.6-14.8) % Plt Count 271 (150-400) X10^3/uL Neut % (Auto) 57.7 (50-75) % Lymph % (Auto) 36.6 (25-40) % [place] % (Auto) 4.4 (3-14) % Eos % (Auto) 0.4 L (2-4) % Baso % (Auto) 0.9 (0-2) % Neut # (Auto) 6300 (9577-1643) /uL Lymph # (Auto) 4000 (0252-4229) /uL [place] # (Auto) 500 (0-900) /uL Eos # (Auto) 0 (0-450) /uL Baso # (Auto) 100 (0-100) /uL PT 10.9 (9.4-12.5) SECONDS INR 1.0 (0.9-1.3) Sodium 140 (137-145) mmol/L Potassium 4.1 (3.4-5.1) mmol/L Chloride 104 (98-107) mmol/L Carbon Dioxide 24 (22-32) mmol/L BUN 12 (7-17) mg/dL Creatinine 0.49 L (0.52-1.04) mg/dL Estimated GFR > 60 (>60) mL/min BUN/Creatinine Ratio 24.5 H (6-22) Glucose 93 (70-100) mg/dL Calcium 9.2 (8.4-10.2) mg/dL Total Bilirubin 0.5 (0.2-1.3) mg/dL AST 20 (14-36) IU/L ALT 11 (<35) IU/L Alkaline Phosphatase 61 (38-126) U/L Total Protein 7.8 (6.3-8.2) g/dL Albumin 4.4 (3.5-5.0) g/dL Globulin 3.4 (1.7-4.1) g/dL Albumin/Globulin Ratio 1.3 (1.0-2.8) Urine Dip Bedside Urine Glucose Negative Bedside Urine Bilirubin - Negative Bedside Urine Ketone - Negative Urine Specific [place] 1.005 Bedside Urine Occult Blood - Negative Bedside Urine pH 6.5 Bedside Urine Protein - Negative Bedside Urine Urobilinogen - Negative Bedside Urine Nitrite - Negative Bedside Urine Leukocytes - Negative Esterase MDM Narrative Medical decision making narrative: 57-year-old female with past medical history clotting disorder presents to the ED status post a ground level fall sustained 4 days prior to arrival. Concern for intra-abdominal bleeding/trauma versus rib fractures versus other. Obtained labs, UA, CT chest abdomen pelvis. Labs, urine, CT with no acute findings. Discussed findings with patient. Recommend Tylenol, lidocaine patch for pain control. Recommend follow-up with PCP. ED return precautions discussed with patient. Patient verbalized understanding. Medical records reviewed: Yes <Domenica Ruano, - Last Filed: 10/31/23 07:13> Lab Data Labs: Lab Results 10/25/23 Range/Units 15:25 WBC 10.8 (4.5-11.0) X10^3/uL RBC 4.94 (4.0-5.2) X10^6/uL Hgb 15.1 (12.0-16.0) g/dL Hct 44.7 (36-46) % MCV 90.5 (80-100) fL MCH 30.6 (26-34) PG MCHC 33.9 (30-36) % RDW 14.2 (11.6-14.8) % Plt Count 271 (150-400) X10^3/uL Neut % (Auto) 57.7 (50-75) % Lymph % (Auto) 36.6 (25-40) % [place] % (Auto) 4.4 (3-14) % Eos % (Auto) 0.4 L (2-4) % Baso % (Auto) 0.9 (0-2) % Neut # (Auto) 6300 (4757-5791) /uL Lymph # (Auto) 4000 (1451-3015) /uL [place] # (Auto) 500 (0-900) /uL Eos # (Auto) 0 (0-450) /uL Baso # (Auto) 100 (0-100) /uL PT 10.9 (9.4-12.5) SECONDS INR 1.0 (0.9-1.3) Sodium 140 (137-145) mmol/L Potassium 4.1 (3.4-5.1) mmol/L Chloride 104 (98-107) mmol/L Carbon Dioxide 24 (22-32) mmol/L BUN 12 (7-17) mg/dL Creatinine 0.49 L (0.52-1.04) mg/dL Estimated GFR > 60 (>60) mL/min BUN/Creatinine Ratio 24.5 H (6-22) Glucose 93 (70-100) mg/dL Calcium 9.2 (8.4-10.2) mg/dL Total Bilirubin 0.5 (0.2-1.3) mg/dL AST 20 (14-36) IU/L ALT 11 (<35) IU/L Alkaline Phosphatase 61 (38-126) U/L Total Protein 7.8 (6.3-8.2) g/dL Albumin 4.4 (3.5-5.0) g/dL Globulin 3.4 (1.7-4.1) g/dL Albumin/Globulin Ratio 1.3 (1.0-2.8) Urine Dip Bedside Urine Glucose Negative Bedside Urine Bilirubin - Negative Bedside Urine Ketone - Negative Urine Specific [place] 1.005 Bedside Urine Occult Blood - Negative Bedside Urine pH 6.5 Bedside Urine Protein - Negative Bedside Urine Urobilinogen - Negative Bedside Urine Nitrite - Negative Bedside Urine Leukocytes - Negative Esterase Discharge Plan Departure Patient Disposition: Home Clinical Impression: Fall from ground level Instructions: How to Prevent Falls Activity Restrictions/Additional Instructions: You were evaluated in the ED today for a ground level fall 4 days ago. Your labs, urine, CT chest abdomen pelvis were normal with no signs of fractures or dislocations or internal bleeding. Symptoms are likely due to some contusions from the fall. Please follow-up with your PCP as soon as possible. You may take Tylenol and apply lidocaine patches for pain. Return to the ED if you have worsening symptoms, chest pain, shortness of breath. Prescriptions: No Action pantoprazole 40 MG tablet,delayed release (DR/EC) 20 mg PO BID Qty: 0 verapamil 120 mg capsule,ext rel. pellets 24 hr 120 mg PO DAILY Qty: 30 0RF apixaban 5 mg tablet 5 mg PO BID Qty: 60 0RF hydroxyzine HCl 25 mg/mL Solution 25 mg metoprolol succinate 50 mg tablet extended release 24 hr 50 mg PO BID lisinopril 10 mg Tablet 10 mg PO BID zolpidem [Ambien] 5 mg Tablet 5 mg Repatha Syringe 140 mg/mL Syringe 140 mg SUBCUT 12-24XD vogkrulhbt-neqsyrqponsjm-jwwy [Fioricet] 50-300-40 mg capsule 1 cap PO Q4H PRN (Reason: Pain (Scale Score 4-6)) Referrals: Raz Bullock MD [Primary Care Provider] - Stand Alone Forms: Patient Portal/API ED Sign-out <Domenica Ruano DO - Last Filed: 10/31/23 07:13> Cosign ED Attending Krysature Attestation: I was immediately available in the department for consultation.
[2023-10-25 18:24] VITALS: BP 153/72; PULSE 69; RESP 16; O2SAT 96
== END 2023-10-25 18:25 | disposition home or self-care (01) ==
PROVIDERS: Emergency Medicine; Emergency Provider Student in an Organized Health Care Education/Training Program; PCP Internal Medicine
DX: R07.81 Pleurodynia (principal); M25.552 Pain in left hip; R31.9 Hematuria, unspecified; W18.30XA Fall on same level, unspecified, initial encounter
CPT/HCPCS: 36415; 71260; 74177; 80053; 81003; 85025; 85610; 99284; Q9967

== ENCOUNTER → 2024-05-12 13:30 | Outpatient (CLI) | payer OTHER, MEDICAID, SELFPAY ==
[2023-05-01 01:48] VITALS: BMI 25.5
--- NOTE | 2024-05-12 13:31 | DI.RAD.S_ITS ---
PROCEDURE: XR CHEST 2V INDICATIONS: Shortness of breath TECHNIQUE: 2 views of the chest were acquired. COMPARISON: [facility], , XR CHEST 1V, 06/29/2023, 12:03. FINDINGS: Surgical changes and devices: None. Lungs and pleura: Lungs are clear. No pleural effusions or pneumothorax. Mediastinum: Mediastinal contours are normal. Heart size is normal. Bones and chest wall: No suspicious bony abnormalities. Soft tissues appear unremarkable. IMPRESSION: No acute cardiopulmonary abnormality is seen. Approved by: Aiyana Mcallister M.D.,Ph.D. on 05/12/2024 at 14:51
== END ==
PROVIDERS: PCP Internal Medicine; Referring Provider Registered Nurse; Visit Provider Registered Nurse
DX: R06.02 Shortness of breath (principal)
CPT/HCPCS: 71046

== ENCOUNTER → 2024-05-15 10:56 | Outpatient (CLI) | payer OTHER, MEDICAID, SELFPAY ==
[2023-05-01 01:48] VITALS: BMI 25.5
[2024-05-15 11:53] LABS: Influenza A - CEPHEID Flu A NEGATIVE (NEGATIVE); Influenza B - CEPHEID Flu B NEGATIVE (NEGATIVE); Respiratory Syncytial Virus Negative (Negative)
[2024-05-15 11:56] LABS: COVID-19 CEPHEID 4-PLEX PCR Negative (Negative)
== END ==
PROVIDERS: PCP Internal Medicine; Visit Provider Nurse Practitioner Family
DX: R05.1 Acute cough (principal); J02.9 Acute pharyngitis, unspecified; R53.83 Other fatigue
CPT/HCPCS: 87635; 87400 ×2; 87420; 0241U; 87070

== ENCOUNTER 2024-09-13 13:27 | Emergency (ER) | payer OTHER, SELFPAY ==
[2023-05-01 01:48] VITALS: BMI 25.5
--- NOTE | 2024-09-13 13:33 | DI.RAD.S_ITS ---
PROCEDURE: XR KNEE RT 3V INDICATIONS: pain after fall TECHNIQUE: 3 views of the knee were acquired. COMPARISON: None. FINDINGS: Bones: No fractures or dislocations. No suspicious bony lesions. Soft tissues: Slight suprapatellar joint effusion. No suspicious soft tissue calcifications. IMPRESSION: Slight suprapatellar posttraumatic knee joint effusion. No fracture or traumatic subluxation seen. Dictated by: Karri Rose M.D. on 09/13/2024 at 14:21 Approved by: Karri Rose M.D. on 09/13/2024 at 14:22
[2024-09-13 13:34] VITALS: BP 117/58; PULSE 83; RESP 17; TEMP 36.6; O2SAT 99; BMI 25.1
--- NOTE | 2024-09-13 14:00 | PC.NURSE ---
Right knee pain. Pt states she fell on her knee a week ago. Pt denies bruising. Pt states she took her RX narcotic meds w/ no improvement. Pt states she feels her knee pop multiple times a day. No obvious deformities noted to knee. Pt states when she ambulates she feels pain go up and down her leg.
--- NOTE | 2024-09-13 14:36 | ED_ITS ---
HPI - Extremity Injury (Lower) General Chief Complaint: Extremity Injury, Lower Stated Complaint: right knee popping after fall 2 weeks ago Time Seen by Provider: 09/13/24 13:33 Source: patient Mode of arrival: Ambulatory History of Present Illness HPI Narrative: Patient was a 58-year-old female here for evaluation of right knee pain and popping and swelling. One week ago she sustained a fall while going down some stairs. Landed on her left knee. Unsure of the exact position. Has been ambulatory since then however has quite a bit of discomfort with moving. He was getting quite a bit of clicking and popping. Also has swelling. Did not get evaluated after the event. She does take anticoagulation. Related Data Home Medications Medication Instructions Recorded Confirmed pantoprazole 40 mg tablet,delayed 20 mg PO BID ##0 07/29/17 09/04/24 release vwkckblkhb-duecioqzpyemm-jcyrlfcw 1 cap PO Q4H PRN Pain (Scale Score 03/31/18 09/04/24 50 mg-300 mg-40 mg capsule 4-6) (Fioricet) evolocumab 140 mg/mL subcutaneous 140 mg SUBCUT -24XD 06/29/23 09/04/24 syringe (Repatha Syringe) hydroxyzine HCl 25 mg/mL 25 mg 06/29/23 09/04/24 intramuscular solution lisinopril 10 mg tablet 10 mg PO BID 06/29/23 09/04/24 metoprolol succinate 50 mg 50 mg PO BID 06/29/23 09/04/24 tablet,extended release 24 hr zolpidem 5 mg tablet (Ambien) 5 mg 06/29/23 09/04/24 pvdswnbvoa-ggdsciszsvtft-brwzyqxi tab PO 05/15/24 09/04/24 50 mg-325 mg-40 mg tablet chlorthalidone 25 mg tablet 12.5 mg PO QAM 05/15/24 09/04/24 evolocumab 140 mg/mL subcutaneous mg SUBCUT 05/15/24 09/04/24 pen injector (Repatha SureClick) fenofibrate nanocrystallized 145 145 mg PO DAILY 05/15/24 09/04/24 mg tablet gabapentin 300 mg capsule 600 mg PO BID 05/15/24 09/04/24 zolpidem 10 mg tablet 10 mg PO ONCE PM PRN 05/15/24 09/04/24 icosapent ethyl 1 gram capsule 2 g PO BID 09/04/24 09/04/24 lisinopril 20 mg tablet 20 mg PO DAILY 09/04/24 09/04/24 valacyclovir 500 mg tablet mg PO 09/04/24 09/04/24 Previous Rx's Medication Instructions Recorded apixaban 5 mg tablet 5 mg PO BID #60 tabs 05/02/23 verapamil 120 mg 24 hr 120 mg PO DAILY #30 caps 05/02/23 capsule,extended release amoxicillin 500 mg capsule 500 mg PO BID #20 caps 09/04/24 Allergies Allergy/AdvReac Type Severity Reaction Status Date / Time azithromycin [AZITHROMYCIN] Allergy Unknown Verified 09/13/24 13:36 Sulfa (Sulfonamide Allergy Unknown RESPIRATORY Verified 09/13/24 13:36 Antibiotics) DISTRESS [SULFA (SULFONAMIDE ANTIBIOTICS)] sumatriptan [From IMITREX] Allergy Unknown RESP Verified 09/13/24 13:36 DISTRESS steroid Allergy Severe tachycardia Uncoded 09/13/24 13:36 Review of Systems Review of Systems Narrative: See HPI Patient History Social History household members: friend(s) Smoking Status: Former smoker alcohol intake: never Smoking Status: Former smoker alcohol intake frequency: 0-2 drinks per day Exam Initial Vital Signs Initial Vital Signs: Vital Signs Temperature 97.9 F 09/13/24 13:34 Pulse Rate 83 09/13/24 13:34 Respiratory Rate 17 09/13/24 13:34 Blood Pressure 117/58 L 09/13/24 13:34 Pulse Oximetry 99 09/13/24 13:34 Oxygen Delivery Method Room Air 09/13/24 13:34 Const General: cooperative and comfortable Resp Effort & Inspection: normal respiratory effort Cardio Rate: regular rate Skin General: no rashes or lesions noted Neuro General: patient alert, patient awake and moves all extremities Extrem Other: Patient does have a mild right knee effusion. Has tenderness along both the medial and lateral joint line. Her quadriceps tendon and patellar tendon are intact. She can do a straight leg raise. Has tenderness along the bilateral hamstrings. Course Orders Ordered: ED Orders 09/13/24 13:33 XR knee RT 3V Stat Vital Signs Vital signs: Vital Signs - 8 hr 09/13/24 13:34 Temperature 97.9 F Pulse Rate 83 Respiratory Rate 17 Blood Pressure 117/58 L Pulse Oximetry 99 Oxygen Delivery Method Room Air MDM - Extremity Injury (Lower) Imaging Data Extremity x-ray #1: Radiologist's Impression: PROCEDURE: XR KNEE RT 3V INDICATIONS: pain after fall TECHNIQUE: 3 views of the knee were acquired. COMPARISON: None. FINDINGS: Bones: No fractures or dislocations. No suspicious bony lesions. Soft tissues: Slight suprapatellar joint effusion. No suspicious soft tissue calcifications. IMPRESSION: Slight suprapatellar posttraumatic knee joint effusion. No fracture or traumatic subluxation seen. [facility] Narrative Medical decision making narrative: No fractures or dislocations noted on the x-ray. Low suspicion for cellulitis or septic joint. I do suspect a soft tissue injury and most likely a meniscus injury given the mechanical symptoms that she was having. Will be treated conservatively for now. Was given an Taj bandage and crutches for her comfort. I recommended icing her knee. Recommended Tylenol. Recommended that if her symptoms are not improving over the next several days she was going to need to follow up with her primary doctor for referral to see physical therapy or even potentially more advanced imaging such as an MRI. Discharge Plan Departure Patient Disposition: Home Clinical Impression: Effusion of knee joint right Instructions: How To Perform RICE (Rest, Ice, Compress, Elevate) Activity Restrictions/Additional Instructions: There were no fractures noted on the x-rays. You can walk on your right knee as tolerated. I do recommend either knee brace or an elastic bandage. The crutches for your comfort. If your symptoms are not improving in the next 7-14 days contact your primary care doctor as you may need a referral to see physical therapy or get more advanced imaging such as an MRI. Prescriptions: No Action chlorthalidone 25 mg tablet 12.5 mg PO QAM zolpidem 10 mg tablet 10 mg PO ONCE PM PRN Repatha SureClick 140 mg/mL pen injector SUBCUT Patient Comments: [NO ORIGINAL SIG] gabapentin 300 mg capsule 600 mg PO BID ldiybvvupr-mhedphxainxgr-unms 50-325-40 mg tablet PO fenofibrate nanocrystallized 145 mg tablet 145 mg PO DAILY icosapent ethyl 1 gram capsule 2 g PO BID valacyclovir 500 mg tablet PO lisinopril 20 mg tablet 20 mg PO DAILY amoxicillin 500 mg capsule 500 mg PO BID Qty: 20 0RF pantoprazole 40 MG tablet,delayed release (DR/EC) 20 mg PO BID Qty: 0 verapamil 120 mg capsule,ext rel. pellets 24 hr 120 mg PO DAILY Qty: 30 0RF apixaban 5 mg tablet 5 mg PO BID Qty: 60 0RF hydroxyzine HCl 25 mg/mL Solution 25 mg metoprolol succinate 50 mg tablet extended release 24 hr 50 mg PO BID lisinopril 10 mg Tablet 10 mg PO BID zolpidem [Ambien] 5 mg Tablet 5 mg Repatha Syringe 140 mg/mL Syringe 140 mg SUBCUT 12-24XD scpngmlafg-uujnohewvejgx-fxld [Fioricet] 50-300-40 mg capsule 1 cap PO Q4H PRN (Reason: Pain (Scale Score 4-6)) Referrals: Raz Bullock MD [Primary Care Provider] - Stand Alone Forms: Patient Portal/API/Survey
[2024-09-13 14:53] VITALS: RESP 16
== END 2024-09-13 14:53 | disposition home or self-care (01) ==
PROVIDERS: Emergency Provider Emergency Medicine; PCP Internal Medicine
DX: M25.461 Effusion, right knee (principal); M25.561 Pain in right knee
CPT/HCPCS: 73562; 99282; 99283

== ENCOUNTER 2024-09-23 11:59 | Emergency (ER) | payer OTHER, SELFPAY ==
[2023-05-01 01:48] VITALS: BMI 25.5
[2024-09-23 12:56] VITALS: BP 121/58; PULSE 70; RESP 16; TEMP 36.9; O2SAT 96; BMI 24.3
--- NOTE | 2024-09-23 14:03 | ED_ITS ---
HPI - Extremity Injury (Lower) <Kenia Hoffman PA-C - Last Filed: 09/23/24 16:30> General Chief Complaint: Extremity Injury, Lower Stated Complaint: right knee pain Time Seen by Provider: 09/23/24 13:46 Source: patient Mode of arrival: Family Vehicle History of Present Illness HPI Narrative: Ms. Sanford is a 58-year-old female with a past medical history of hypercholesterolemia, VTE on Eliquis, 09/13/2024 right suprapatellar posttraumatic knee joint effusion who presents to the emergency department for worsening right knee pain. Patient had a fall onto the right knee on 09/06/2024. She was seen in the ER on 09/13/2024 and had an x-ray obtained which revealed a traumatic suprapatellar joint effusion. She was advised to follow up with PCP for further management/PT/possible MRI in addition to supportive therapy. Patient was unable to get an appointment until 10/06/2024 and presents to ER today because the pain is too severe. Because of her history of DVT in the decreased mobility in her right leg, she is concerned for a possible DVT. Pain is exacerbated by any movement and is improved only with lying on her left side with a pillow between her knees. She has been using crutches. She has been taking Tylenol without resolution of her pain. She denies any new injury. Related Data Home Medications Medication Instructions Recorded Confirmed pantoprazole 40 mg tablet,delayed 20 mg PO BID ##0 07/29/17 09/04/24 release jkwmmqqmtd-ozlwnwrfirpxx-urrpkjcc 1 cap PO Q4H PRN Pain (Scale Score 03/31/18 09/04/24 50 mg-300 mg-40 mg capsule 4-6) (Fioricet) evolocumab 140 mg/mL subcutaneous 140 mg SUBCUT 12-24XD 06/29/23 09/04/24 syringe (Repatha Syringe) hydroxyzine HCl 25 mg/mL 25 mg 06/29/23 09/04/24 intramuscular solution lisinopril 10 mg tablet 10 mg PO BID 06/29/23 09/04/24 metoprolol succinate 50 mg 50 mg PO BID 06/29/23 09/04/24 tablet,extended release 24 hr zolpidem 5 mg tablet (Ambien) 5 mg 06/29/23 09/04/24 fysnjgrefy-czscbcffrsnxs-aeogjork tab PO 05/15/24 09/04/24 50 mg-325 mg-40 mg tablet chlorthalidone 25 mg tablet 12.5 mg PO QAM 05/15/24 09/04/24 evolocumab 140 mg/mL subcutaneous mg SUBCUT 05/15/24 09/04/24 pen injector (Chaim Armas) fenofibrate nanocrystallized 145 145 mg PO DAILY 05/15/24 09/04/24 mg tablet gabapentin 300 mg capsule 600 mg PO BID 05/15/24 09/04/24 zolpidem 10 mg tablet 10 mg PO ONCE PM PRN 05/15/24 09/04/24 icosapent ethyl 1 gram capsule 2 g PO BID 09/04/24 09/04/24 lisinopril 20 mg tablet 20 mg PO DAILY 09/04/24 09/04/24 valacyclovir 500 mg tablet mg PO 09/04/24 09/04/24 Previous Rx's Medication Instructions Recorded apixaban 5 mg tablet 5 mg PO BID #60 tabs 05/02/23 verapamil 120 mg 24 hr 120 mg PO DAILY #30 caps 05/02/23 capsule,extended release amoxicillin 500 mg capsule 500 mg PO BID #20 caps 09/04/24 Allergies Allergy/AdvReac Type Severity Reaction Status Date / Time azithromycin [AZITHROMYCIN] Allergy Unknown Verified 09/13/24 13:36 Sulfa (Sulfonamide Allergy Unknown RESPIRATORY Verified 09/13/24 13:36 Antibiotics) DISTRESS [SULFA (SULFONAMIDE ANTIBIOTICS)] sumatriptan [From IMITREX] Allergy Unknown RESP Verified 09/13/24 13:36 DISTRESS steroid Allergy Severe tachycardia Uncoded 09/13/24 13:36 Review of Systems <Kenia Hoffman PA-C - Last Filed: 09/23/24 16:30> Review of Systems ROS Unobtainable: All systems reviewed & are unremarkable except as noted in HPI and below Patient History <Kenia Hoffman PA-C - Last Filed: 09/23/24 16:30> Social History household members: friend(s) Smoking Status: Former smoker alcohol intake: never Smoking Status: Former smoker alcohol intake frequency: 0-2 drinks per day Exam <Kenia Hoffman PA-C - Last Filed: 09/23/24 16:30> Narrative Exam Narrative: GENERAL: 58 year old patient appears stated age. Well-developed patient, in no acute distress. CARDIOVASCULAR: Regular rate and rhythm. RESPIRATORY: ?Nonlabored respirations. ?Speaking in clear, full sentences. ? EXTREMITIES: right knee exam extremely limited 2/2 pt request to not move or touch her knee. No obvious deformities, no skin changes, no erythema or increased warmth. She does have brisk capillary refill on the right toes and palpable pulses. NEURO: AOx3. ?Clear speech. ?Sensation intact to light touch on lower extremities. SKIN: No rash or erythema of visible areas Initial Vital Signs Initial Vital Signs: Vital Signs Temperature 98.4 F 09/23/24 12:56 Pulse Rate 70 09/23/24 12:56 Respiratory Rate 16 09/23/24 12:56 Blood Pressure 121/58 L 09/23/24 12:56 Pulse Oximetry 96 09/23/24 12:56 Oxygen Delivery Method Room Air 09/23/24 12:56 <Elisa Campa MD - Last Filed: 09/25/24 07:31> Initial Vital Signs Initial Vital Signs: Vital Signs Temperature 98.4 F 09/23/24 12:56 Pulse Rate 70 09/23/24 12:56 Respiratory Rate 16 09/23/24 12:56 Blood Pressure 121/58 L 09/23/24 12:56 Pulse Oximetry 96 09/23/24 12:56 Oxygen Delivery Method Room Air 09/23/24 12:56 Course <Kenia Hoffman PA-C - Last Filed: 09/23/24 16:30> Orders Ordered: Discontinued Medications Hydrocodone Bitart/Acetaminophen (Hydrocodone/Acet 5/325 Tablet) 1 tab PO NOW ONE Stop: 09/23/24 14:12 Last Admin: 09/23/24 14:30 Dose: 1 tab Documented By: SPF Vital Signs Vital signs: Vital Signs - 8 hr 09/23/24 12:56 09/23/24 14:31 Temperature 98.4 F Pulse Rate 70 Respiratory Rate 16 16 Blood Pressure 121/58 L Pulse Oximetry 96 Oxygen Delivery Method Room Air <Elisa Campa MD - Last Filed: 09/25/24 07:31> Orders Ordered: Discontinued Medications Hydrocodone Bitart/Acetaminophen (Hydrocodone/Acet 5/325 Tablet) 1 tab PO NOW ONE Stop: 09/23/24 14:12 Last Admin: 09/23/24 14:30 Dose: 1 tab Documented By: HUNTER Vital Signs Vital signs: Vital Signs - 8 hr 09/23/24 12:56 09/23/24 14:31 Temperature 98.4 F Pulse Rate 70 Respiratory Rate 16 16 Blood Pressure 121/58 L Pulse Oximetry 96 Oxygen Delivery Method Room Air MDM - Extremity Injury (Lower) <Kenia Hoffman PA-C - Last Filed: 09/23/24 16:30> Medical Records Attestation: I reviewed the patient's medical records. Medical records narrative: 09/13/24 knee X-Ray: IMPRESSION: Slight suprapatellar posttraumatic knee joint effusion. No fracture or traumatic subluxation seen. Imaging Data Right Knee X-Ray: Radiologist's Impression: PROCEDURE: XR KNEE RT 3V INDICATIONS: prior injury, xray 09/13/24; worsening pain TECHNIQUE: 3 views of the knee were acquired. COMPARISON: [facility], , XR KNEE RT 3V, 09/13/2024, 13:33. FINDINGS: Bones: No fractures or dislocations. No suspicious bony lesions. Soft tissues: Zsrc-qj-nmatatvv joint effusion. No suspicious soft tissue calcifications. IMPRESSION: Mild to moderate effusion. No visualized acute fracture or dislocation. However, if clinical concern and/or pain persist, short interval imaging followup in 7-[address]/MRI as appropriate. Right LE Vasc US: Radiologist's Impression: PROCEDURE: US PERIPH VENOUS LOW EXTREM RT INDICATIONS: PAIN; HX DVT TECHNIQUE: Real-time imaging, as well as color and pulse Doppler interrogation, were performed of the lower extremity deep veins from the inguinal ligament to the popliteal fossa, with documentation of the visualized calf veins. COMPARISON: None. FINDINGS: The common femoral, femoral, popliteal, and the visualized calf veins are normally compressible, and free of intraluminal thrombus. Color and pulse Doppler demonstrate normal phasic intraluminal flow. There is normal augmentation response to distal compression maneuver. IMPRESSION: No findings of lower extremity deep venous thrombosis. [facility] Narrative Medical decision making narrative: 58-year-old female with a past medical history of hypercholesterolemia, VTE on Eliquis, 09/13/2024 right suprapatellar posttraumatic knee joint effusion who presents to the emergency department for worsening right knee pain. Differential diagnosis includes but is not limited to knee effusion, knee fracture, occult injury, DVT, meniscus injury, ligament injury, etc. On exam patient is in no acute distress, nontoxic appearing. Vital signs appropriate. Right knee exam limited as patient does not want me to move or touch her right knee. No obvious deformities, no erythema, no swelling of the calf, right foot brisk cap refill and palpable pulses are present. No increased warmth, erythema, fever, or systemic symptoms concerning for septic joint. She was seen in the ER on 09/13/2024 for knee pain after a fall and has had worsening symptoms since then. She was advised to follow up with PCP for PT/MRI however was unable to get an appointment until 10/06/2024. She has been taking Tylenol without relief when using crutches. Can not take NSAIDs due to anticoagulation. We will obtain repeat x-ray, ultrasound for DVT, treat with hydrocodone-acetaminophen for severe pain in the ED. X-ray from 09/13 and today reviewed with the patient. Ultrasound reviewed with the patient. She was provided with printed copies. Ultrasound is negative for DVT. X-ray reveals rvdu-jy-bxctnblh effusion which is larger than previously. Concern for meniscus or ligament injury given history of trauma to the knee, we will place knee into right immobilizer, patient has crutches for support. I did recommend patient taking off immobilizer making sure to continue moving leg at sometimes due to history of DVT. Provided her with follow up information for [facility] for further imaging and management. She verbalized understanding of all information is agreeable to the plan. She is stable for discharge home. She has a ride home. Discharge Plan Departure Patient Disposition: Home Clinical Impression: Effusion of knee joint right Sprain of right knee Qualifiers: Encounter type: initial encounter Involved ligament of knee: unspecified ligament Qualified Code(s): S83.91XA - Sprain of unspecified site of right knee, initial encounter Instructions: DI for Knee Sprain Activity Restrictions/Additional Instructions: Today you were evaluated for right knee pain and had an x-ray and an ultrasound performed. Ultrasound revealed that there was no blood clot in the right leg. X-ray revealed there is a right knee effusion which is fluid in the knee joint. We have placed him into a right knee immobilizer. Please call to schedule an appointment with orthopedics for further evaluation. Please also follow up with your primary care doctor. You will likely need additional imaging of the right knee and further management. [facility] - [phone]. You may schedule an appointment with Dr. Enrrique Rosenberg or one of the other providers. Please use RICE therapy for your pain in addition to ibuprofen/acetaminophen. Rest the painful area. Ice the area of pain/swelling for at least 15 minutes, 4x a day. Compress the area of swelling using a brace, wrap, or splint if applied. Elevate the painful or swollen extremity by supporting it above the level of the heart with pillows when sitting or laying. You may also take Acetaminophen 650 mg every 4-6 hours for pain or 1000mg every 8 hours. Do not exceed 3000 mg of Tylenol a day as this can cause liver damage. Please follow up with your primary care doctor within the next 2-3 days for ER follow-up. (If you do not have a PCP you can call [phone]. ?to schedule an appointment with an [facility] Primary Care Provider) IF YOU DEVELOP ANY NEW OR WORSENING SYMPTOMS, RETURN TO THE ER! Please read the attached instructions, they highlight more specific treatments and interventions for you at home. Thank you for letting me participate in your care, Kenia Hoffman PA-C Prescriptions: No Action chlorthalidone 25 mg tablet 12.5 mg PO QAM zolpidem 10 mg tablet 10 mg PO ONCE PM PRN Repatha SureClick 140 mg/mL pen injector SUBCUT Patient Comments: [NO ORIGINAL SIG] gabapentin 300 mg capsule 600 mg PO BID gpauayxnxs-fsobfxmjlxxfl-kkea 50-325-40 mg tablet PO fenofibrate nanocrystallized 145 mg tablet 145 mg PO DAILY icosapent ethyl 1 gram capsule 2 g PO BID valacyclovir 500 mg tablet PO lisinopril 20 mg tablet 20 mg PO DAILY amoxicillin 500 mg capsule 500 mg PO BID Qty: 20 0RF pantoprazole 40 MG tablet,delayed release (DR/EC) 20 mg PO BID Qty: 0 verapamil 120 mg capsule,ext rel. pellets 24 hr 120 mg PO DAILY Qty: 30 0RF apixaban 5 mg tablet 5 mg PO BID Qty: 60 0RF hydroxyzine HCl 25 mg/mL Solution 25 mg metoprolol succinate 50 mg tablet extended release 24 hr 50 mg PO BID lisinopril 10 mg Tablet 10 mg PO BID zolpidem [Ambien] 5 mg Tablet 5 mg Repatha Syringe 140 mg/mL Syringe 140 mg SUBCUT 12-24XD eoyukchoqb-cobgoiypreohe-xxqd [Fioricet] 50-300-40 mg capsule 1 cap PO Q4H PRN (Reason: Pain (Scale Score 4-6)) Referrals: Raz Bullock MD [Primary Care Provider] - Stand Alone Forms: Patient Portal/API/Survey, Work Release Note ED Sign-out <Elisa Campa MD - Last Filed: 09/25/24 07:31> Cosign ED Attending Cosignature Attestation: I was immediately available in the department for consultation throughout this patient's visit. Elisa Campa MD
--- NOTE | 2024-09-23 14:11 | DI.RAD.S_ITS ---
PROCEDURE: XR KNEE RT 3V INDICATIONS: prior injury, xray 09/13/24; worsening pain TECHNIQUE: 3 views of the knee were acquired. COMPARISON: [facility], , XR KNEE RT 3V, 09/13/2024, 13:33. FINDINGS: Bones: No fractures or dislocations. No suspicious bony lesions. Soft tissues: Odrh-eu-yrsswhuc joint effusion. No suspicious soft tissue calcifications. IMPRESSION: Mild to moderate effusion. No visualized acute fracture or dislocation. However, if clinical concern and/or pain persist, short interval imaging followup in 7-[address]/MRI as appropriate. Dictated by: Fernanda Santamaria M.D. on 09/23/2024 at 15:03 Approved by: Fernanda Santamaria M.D. on 09/23/2024 at 15:03
--- NOTE | 2024-09-23 14:11 | DI.US.S_ITS ---
PROCEDURE: US PERIPH VENOUS LOW EXTREM RT INDICATIONS: PAIN; HX DVT TECHNIQUE: Real-time imaging, as well as color and pulse Doppler interrogation, were performed of the lower extremity deep veins from the inguinal ligament to the popliteal fossa, with documentation of the visualized calf veins. COMPARISON: None. FINDINGS: The common femoral, femoral, popliteal, and the visualized calf veins are normally compressible, and free of intraluminal thrombus. Color and pulse Doppler demonstrate normal phasic intraluminal flow. There is normal augmentation response to distal compression maneuver. IMPRESSION: No findings of lower extremity deep venous thrombosis. Dictated by: Mitch Washington M.D. on 09/23/2024 at 14:35 Approved by: Mitch Washington M.D. on 09/23/2024 at 14:36
[2024-09-23] MEDS: HYDROCODONE/ACET 5/325 TABLET 1 TAB PO (14:30)
[2024-09-23 14:31] VITALS: RESP 16
[2024-09-23 16:25] VITALS: BP 131/60; PULSE 57; RESP 16; O2SAT 97
== END 2024-09-23 16:30 | disposition home or self-care (01) ==
PROVIDERS: Emergency Provider Physician Assistant; PCP Internal Medicine
DX: S83.91XD Sprain of unspecified site of right knee, subsequent encounter (principal); M25.461 Effusion, right knee; W01.0XXD Fall on same level from slipping, tripping and stumbling without subsequent striking against object, subsequent encounter
CPT/HCPCS: 73562; 93971; 99283

== ENCOUNTER → 2025-03-08 09:14 | Outpatient (CLI) | payer OTHER, SELFPAY ==
[2023-05-01 01:48] VITALS: BMI 25.5
[2025-03-08 10:09] LABS: COVID-19 CEPHEID 4-PLEX PCR Negative (Negative); Influenza A - CEPHEID Flu A NEGATIVE (NEGATIVE); Influenza B - CEPHEID Flu B NEGATIVE (NEGATIVE); Respiratory Syncytial Virus Negative (Negative)
== END ==
PROVIDERS: Family Provider Internal Medicine; PCP Internal Medicine; Visit Provider Nurse Practitioner Family
DX: Z20.828 Contact with and (suspected) exposure to other viral communicable diseases (principal)
CPT/HCPCS: 87635; 87400; 87420; 0241U

== ENCOUNTER → 2025-03-08 09:41 | Outpatient (CLI) | payer OTHER, SELFPAY ==
[2023-05-01 01:48] VITALS: BMI 25.5
--- NOTE | 2025-03-08 09:43 | DI.RAD.S_ITS ---
PROCEDURE: XR CHEST 2V INDICATIONS: SOB, cough, fever TECHNIQUE: 2 views of the chest were acquired. COMPARISON: [facility], CR, XR CHEST 2V, 05/12/2024, 13:29. FINDINGS: Surgical changes and devices: None. Lungs and pleura: Lungs are clear. No pleural effusions or pneumothorax. Mediastinum: Mediastinal contours are normal. Heart size is normal. Bones and chest wall: No suspicious bony abnormalities. Soft tissues appear unremarkable. IMPRESSION: No acute cardiopulmonary abnormality is seen. Approved by: Vadim Diego M.D. on 03/08/2025 at 18:43
== END ==
PROVIDERS: Family Provider Internal Medicine; PCP Internal Medicine; Referring Provider Nurse Practitioner Family; Visit Provider Nurse Practitioner Family
DX: R05.9 Cough, unspecified (principal); Z20.828 Contact with and (suspected) exposure to other viral communicable diseases
CPT/HCPCS: 0241U; 71046

== ENCOUNTER → 2025-05-31 16:51 | Outpatient (CLI) | payer OTHER, SELFPAY ==
[2023-05-01 01:48] VITALS: BMI 25.5
== END ==
PROVIDERS: Family Provider Internal Medicine; PCP Internal Medicine; Visit Provider Nurse Practitioner Family
DX: J02.9 Acute pharyngitis, unspecified (principal); R42 Dizziness and giddiness
CPT/HCPCS: 87070

== ENCOUNTER → 2025-05-31 17:33 | Outpatient (CLI) | payer OTHER, SELFPAY ==
[2023-05-01 01:48] VITALS: BMI 25.5
[2025-05-31 17:48] LABS: Add Manual Diff / Slide Review NO; Hematocrit 40.8 % (36-46); Hemoglobin 13.9 g/dL (12.0-16.0); Lymphocytes Absolute Auto 3500 /uL (1100-4500); Mean Corpuscular HGB Conc 34.1 % (30-36); Mean Corpuscular Hemoglobin 31.1 PG (26-34); Mean Corpuscular Volume 91.1 fL (80-100); Platelet Count 290 X10^3/uL (150-400)
[2025-05-31 18:08] LABS: Alanine Aminotransferase 22 IU/L (<35); Albumin 4.7 g/dL (3.5-5.0); Albumin Globulin Ratio 1.7 (1.0-2.8); Alkaline Phosphatase 57 U/L (38-126); Blood Urea Nitrogen 18 mg/dL (7-17); Calcium 9.1 mg/dL (8.4-10.2); Carbon Dioxide 27 mmol/L (22-32); Chloride 103 mmol/L (98-107); Estimated Glomerular Filt Rate > 60 mL/min (>60); Globulin 2.8 g/dL (1.7-4.1); Glucose 107 mg/dL (70-99); HEMOLYSIS < 15 (0-50); Potassium 4.2 mmol/L (3.4-5.1); Sodium 139 mmol/L (137-145); Total Protein 7.5 g/dL (6.3-8.2)
== END ==
PROVIDERS: Family Provider Internal Medicine; PCP Internal Medicine; Referring Provider Nurse Practitioner Family; Visit Provider Nurse Practitioner Family
DX: R42 Dizziness and giddiness (principal); J02.9 Acute pharyngitis, unspecified
CPT/HCPCS: 36415; 80053; 85025; 87070